=== PATIENT | female | born 1955 | race Caucasian/White ===

== ENCOUNTER 2021-07-27 17:31 | Emergency (ER) | payer MEDICARE, MEDICAID, SELFPAY ==
[2021-07-27 17:44] VITALS: BP 190/81; PULSE 62; RESP 13; TEMP 36.6; O2SAT 96; BMI 38.2
--- NOTE | 2021-07-27 18:55 | ED_ITS ---
HPI - Skin/Abscess/Foreign Bdy General Chief complaint: Skin/Abscess/Foreign Body Stated complaint: left hand burn Time Seen by Provider: 07/27/21 18:52 Source: patient Mode of arrival: ambulatory History of Present Illness HPI narrative: 65-year-old female with a past medical history of diabetes, hypertension presenting to the ED complaining of burn to left hand s/p cooking cabbage [employer]. Reports lifted cabbage of hot water and splashed back on to hand Onset (ago): hour(s) Related Data Previous Rx's Medication Instructions Recorded silver sulfadiazine 1 % topical 1 appl TOPICAL BID #50 g 07/27/21 cream (Silvadene) Allergies Allergy/AdvReac Type Severity Reaction Status Date / Time bupropion [From WELLBUTRIN] Allergy Unknown UNKNOWN Unverified 03/02/20 15:01 ibuprofen [From MOTRIN] Allergy Unknown UNKNOWN Unverified 03/02/20 15:01 Wellbutrin Allergy Unknown anaphylaxis Uncoded 10/26/18 00:00 Review of Systems Review of Systems: Constitutional: No Fever, No Chills ENT/Mouth: No Ear Pain, No sore throat, No Rhinorrhea, No Swallowing Difficulty Cardiovascular: No Chest Pain, No SOB Respiratory: No Cough, No Wheezing Gastrointestinal: No Nausea, No Vomiting, No Abdominal pain Genitourinary: No Dysuria, No Urinary Frequency, No Hematuria, No Urgency, No Flank Pain Musculoskeletal: + joint pain, No Myalgias, + Joint Swelling Skin: +burn No rash Neuro: No Weakness, No Numbness, No Paresthesias Yes all other systems are reviewed and are negative [facility] Past Medical History Attestation statement: The following information was validated with the patient. Medical History Diabetes HTN (hypertension) Social History Social History Advance Directives: No Advance Directives Information Provided: Yes Physical Exam Vital Signs: Vital Signs: Last Vital Signs Temp 97.8 F 07/27/21 17:44 Pulse 62 07/27/21 17:44 Resp 13 07/27/21 17:44 BP 190/81 H 07/27/21 17:44 Pulse Ox 96 07/27/21 17:44 BMI result Body Mass Index 38.2 Const: General: cooperative, healthy appearing and no acute distress Orientation/consciousness: patient oriented x3 Limitations: no limitations HENMT: Head: Yes normal to inspection Ears: hearing grossly normal bilaterally General nose exam: Normal external nose present Face and sinus: Yes normal facial exam Eyes: General: appearance normal, both eyes and all related structures EOM: EOMs intact bilaterally Neck: Neck: Yes normal visual inspection and Yes no meningeal signs Resp: Effort & Inspection: normal respiratory effort and no respiratory distress Cardio: Rate: regular rate Heart sounds: S1 normal heart sound present and S2 normal heart sound present Peripheral pulses: radial pulses present Skin: Other: + Small area of superficial burn to left 3rd, 4th & 5th digits, volar aspect. Not circumferential. No blistering. No streaking. Full range of motion intact. Wounds: no wounds Neuro: General: patient oriented x3 and no meningeal signs Gait exam (Neuro): Normal gait present Extrem: General: Yes normal to inspection MDM - Skin/Abscess/Foreign Bdy MDM Narrative Medical decision making narrative: 65-year-old female with a past medical history of diabetes, hypertension presenting to the ED complaining of burn to right hand s/p cooking cabbage [employer]. On exam Hypertensive, did not take antihypertensives this morning, will give home dose, NAD/nontoxic, small superficial/1st degree burn noted to 3rd, 4th, an d 5th digits Volar aspect. No evidence of infection/blistering. Not circumferential. NV intact Will apply Silvadene and dressing Worrisome signs and symptoms and strict return precautions discussed Medical Records Attestation: I reviewed the patient's medical records. Lab Data Attestation: I reviewed the patient's lab results. Discharge Plan Discharge Clinical Impression: Burn Patient Disposition: Home, Self-Care Instructions: Superficial Burn (ED) Additional Instructions: You have a superficial burn to your left hand. Apply silver Silvadene as prescribed. Keep clean If begins to blister do not pop blisters Please follow-up with your doctor If area begins to look infected, increasing redness, swelling, or fever please return to the ED Prescriptions: New silver sulfadiazine [Silvadene] 1 % cream 1 appl topical BID Qty: 50 0RF Rx Instructions: apply a 1.5 mm thickness Referrals: Luz Elena Child PA [Primary Care Provider] - 5 days (as needed)
[2021-07-27] MEDS: Silver Sulfadiazine 1 % Cream 20 GM TUBE 1 APPL TOPICAL (19:59)
== END 2021-07-27 20:25 | disposition home or self-care (01) ==
PROVIDERS: Emergency Provider Internal Medicine; PCP Physician Assistant
DX: T23.132A Burn of first degree of multiple left fingers (nail), not including thumb, initial encounter (principal); T31.0 Burns involving less than 10% of body surface; I10 Essential (primary) hypertension; X12.XXXA Contact with other hot fluids, initial encounter; Y93.G3 Activity, cooking and baking; Y92.030 Kitchen in apartment as the place of occurrence of the external cause; Y99.9 Unspecified external cause status
CPT/HCPCS: 16000; 99283

== ENCOUNTER 2022-05-28 19:00 | Emergency (ER) | payer MEDICARE, MEDICAID, SELFPAY ==
[2022-05-28 20:26] VITALS: BP 229/98; PULSE 77; RESP 18; TEMP 36.6; O2SAT 97; BMI 36.6
--- NOTE | 2022-05-28 20:26 | ED_ITS ---
HPI - Back Pain/Injury General Chief Complaint: Back Pain/Injury Stated Complaint: Back pain Time Seen by Provider: 05/28/22 21:21 Source: patient Mode of arrival: ambulatory Limitations: no limitations History of Present Illness HPI Narrative: 66-year-old female with a past medical history of hypertension reports that she did not take her blood pressure medications today, history of chronic back pain with sciatica is presenting to the ER with complaints of 2 days of lower back pain radiating to her left buttock/left leg that is similar to her prior back pain/sciatica episodes. Reports that she forgot to take her blood pressure medication today and she denies any dizziness, headaches, neck pain/stiffness, chest pain or shortness of breath, nausea/vomiting, abdominal pain, dysuria, lower extremity more calf tenderness or any other symptoms complaints or concerns at this time. MD elicited complaint: back pain and back injury Pertinent past history: prior back pain Onset (ago): day(s) (2) Timing: constant and progressively worsening Severity: moderate Similar Symptoms Previously: Yes Quality: aching, spasming and throbbing Location: lumbar spine Radiation: buttocks and left upper leg Exacerbating factors: movement, sitting upright, walking and lifting Relieving factors: none Context: unknown Associated symptoms: denies other symptoms Treatments prior to arrival: acetaminophen Work related injury: No Related Data Previous Rx's Medication Instructions Recorded silver sulfadiazine 1 % topical 1 appl topical BID #50 grams 07/27/21 cream (Silvadene) cyclobenzaprine 10 mg tablet 10 mg PO Q8H #14 tabs 05/28/22 ketorolac 10 mg tablet 10 mg PO Q8H PRN pain #14 tabs 05/28/22 oxycodone 5 mg tablet 5 mg PO Q6H PRN pain #14 tabs 05/28/22 prednisone 20 mg tablet 40 mg PO DAILY inflammation 5 days 05/28/22 #10 tabs Allergies Allergy/AdvReac Type Severity Reaction Status Date / Time bupropion [From WELLBUTRIN] Allergy Unknown UNKNOWN Unverified 03/02/20 15:01 ibuprofen [From MOTRIN] Allergy Unknown UNKNOWN Unverified 03/02/20 15:01 Wellbutrin Allergy Unknown anaphylaxis Uncoded 10/26/18 00:00 Review of Systems Review of Systems: Constitutional : No trauma, No Weight loss, No Fever, No Chills, ENT/Mouth : No Hearing loss, No Ear Pain, No Nasal Congestion, No Sinus Pain, No Hoarseness, No sore throat, No Rhinorrhea, No Swallowing Difficulty Cardiovascular : No Chest Pain, No SOB Respiratory : No Cough, No Dyspnea Gastrointestinal : No Nausea, No Vomiting, No Diarrhea, No abdominal Pain, No Hematochezia, No Melena Genitourinary : No Dysuria, No Urinary Frequency, No Hematuria, No Urinary or Bowel Incontinence/retention Musculoskeletal : + Back pain, No neck pain, No joint stiffness, No joint swelling Skin : No Skin Lesions, No rash or signs of infection Neuro : No Weakness, No Numbness, No Paresthesias, No headache, no loss of bowel or bladder incontinence, no saddle anesthesia, Focal weakness, + radiation Denies history of IV drug usage. Yes all other systems are reviewed and are negative [facility] Past Medical History Attestation statement: The following information was validated with the patient. Source: old records reviewed and nursing notes reviewed Medical History Diabetes HTN (hypertension) Social History Social History Advance Directives: No Advance Directives Information Provided: No Physical Exam Vital Signs: Vital Signs: Last Vital Signs Temp 97.8 F 05/28/22 20:26 Pulse 77 05/28/22 20:26 Resp 18 05/28/22 20:26 BP 229/98 H 05/28/22 20:26 Pulse Ox 97 05/28/22 20:26 O2 Del Method 05/28/22 20:26 BMI result Body Mass Index 36.6 vital signs have been reviewed as normal and appeared to be correct. Blood pressure normal. Heart rate normal. Respiration rate normal. Temperature normal. Oxygen saturation normal. Appearance: Alert. Oriented X3. No acute distress. Head: Normal external exam. Normocephalic. Atraumatic. No [place] signs noted. No raccoon eyes noted Eyes: PERRLA. EOMI. Conjunctiva and sclera normal. Eyelids normal. ENT: EAC normal. TM's Normal. Pharynx normal. Uvula midline. Moist mucous membranes. No trismus noted. No drooling noted. No muffled voice noted. Neck: Normal inspection. Neck supple. FROM. No adenopathy. Thyroid Normal. No meningeal signs. No neck mass noted. CVS: Normal heart rate and rhythm. Heart sound normal. No murmurs noted. Pulses normal throughout. Respiratory: No respiratory distress. Painless inspiration. Breath sounds normal. No wheezes/rales/rhonchi noted. Chest nontender. No accessory muscle usage noted or decreased air movement noted. Abdomen: Soft and nontender. Bowel sounds normal in all 4 quadrants. No distention noted. No organomegaly noted. No visible injury noted. Back: No CVA tenderness. Full range of motion noted. No obvious deformities, or edema. Mild para-spinal muscular tenderness from lumbar region to coccyx. Full ROM in back and lower extremities. 5/5 strength hip extension/flexion, abduction, adduction. Mild Lumbar pain with hip flexion against resistance. Straight leg raise test negative on right; Straight leg raise test negative on left; Reflexes normal ankle and knee bilaterally; EHL motor strength normal bilaterally. No rashes/lesion/induration/fluctuance or signs infection noted. Skin: Skin warm and dry. Normal skin color. Normal skin turgor. No rashes/lesions/lacerations noted. Extremities: No lower extremity edema. Extremities exhibit normal range of motion. Extremities nontender. Neuro: Oriented X 3. No motor deficit. No sensory deficit. Reflexes normal. Patient has a normal steady gait. Course Course Course Narrative: 20:40pm - Pt c likely muscular pain, but could be herniated disc. Neuro exam shows no deficits. Not c/w AAA/epidural abscess/dissection.No high risk Hx (Incont, fever, immunosupp, recent surgery/LP, coag, signif trauma, wt loss, puls mass, hx/o Ca, TB, or IVDU) to warrant MRI/CT today. Not c/w Pyelo/UTI/kidney stone/spinal fx. Not cauda equina syndrome. Imaging not currently indicated. I was going to discharge the patient although her blood pressure is 200/100. She reports she did not take her prescribed medication. Appears that the patient is on amlodipine 5 mg daily and losartan 50 mg. Denies any cardiac related complaints. Therefore at this time I was about to discharge her with Toradol, Flexeril, prednisone and oxycodone although due to her blood pressure being elevated will give her prescribed losartan 50 mg amlodipine 5 mg re-evaluate the patient's blood pressure. Otherwise all other vitals are stable. Not in any acute distress. Patient will be sent back to the waiting room for further evaluation treatment. Reevaluation(s) Reevaluation #1: Patient reports that her pain is improved. Her blood pressure still elevated despite giving her her 2 blood pressure medications. She reports she no longer wants to be here she does not want any labs or imaging and she reports that she does not have any cardiac related complaints that it is because she forgot to take her blood pressure medication. Therefore at this time she is requesting to be discharged. I explained to her she develops any dizziness, headaches or any cardiac related complaints and she will have to return immediately. Patient understands agrees with this plan. Requesting to be discharged therefore she will be discharged. Time: 21:24 Medications Administered Discontinued Medications Generic Name Dose Route Start Last Admin Trade Name Freq PRN Reason Stop Dose Admin Amlodipine Besylate 5 mg 05/28/22 20:32 05/28/22 20:43 Amlodipine Besylate 5 Mg Tablet PO 05/28/22 20:33 5 mg ONCE ONE Administration Protocol Ketorolac Tromethamine 60 mg 05/28/22 20:28 05/28/22 20:42 Ketorolac Tromethamine 60 Mg/2 Ml Vial IM 05/28/22 20:29 60 mg ONCE ONE Administration Losartan Potassium 50 mg 05/28/22 20:32 05/28/22 20:41 Losartan Potassium 50 Mg Tablet PO 05/28/22 20:33 50 mg ONCE ONE Administration Protocol Discharge Plan Discharge Clinical Impression: Lumbar radicular pain, Elevated blood pressure reading Patient Disposition: Home, Self-Care Instructions: Lumbar Radiculopathy (ED), Lower Back Exercises (ED) Prescriptions: New ketorolac 10 mg tablet 10 mg PO Q8H PRN (Reason: pain) Qty: 14 0RF cyclobenzaprine 10 mg tablet 10 mg PO Q8H Qty: 14 0RF prednisone 20 mg tablet 40 mg PO DAILY 5 Days Qty: 10 0RF oxycodone 5 mg tablet 5 mg PO Q6H PRN (Reason: pain) Qty: 14 0RF Rx Instructions: Partial Fill upon patient request. No Action silver sulfadiazine [Silvadene] 1 % cream 1 appl topical BID Qty: 50 0RF Rx Instructions: apply a 1.5 mm thickness Referrals: Luz Elena Child PA [Physician [employer]] - 2 days
[2022-05-28] MEDS: Losartan Potassium 50 MG TABLET PO (20:41)
[2022-05-28] MEDS: Ketorolac Tromethamine 60 MG/2 ML VIAL IM (20:42)
[2022-05-28] MEDS: amLODIPine Besylate 5 MG TABLET PO (20:43)
== END 2022-05-28 21:25 | disposition home or self-care (01) ==
PROVIDERS: Emergency Provider Internal Medicine
DX: M54.50 Low back pain, unspecified (principal); R03.0 Elevated blood-pressure reading, without diagnosis of hypertension; Z79.899 Other long term (current) drug therapy
CPT/HCPCS: 96372; 99283; 99284; J1885

== ENCOUNTER 2022-07-30 13:07 | Emergency (ER) | payer MEDICARE, MEDICAID, SELFPAY ==
[2022-07-30 13:13] VITALS: BP 177/95; PULSE 79; RESP 18; TEMP 37; O2SAT 98; BMI 35.0
--- NOTE | 2022-07-30 13:13 | ED.BACK ---
HPI - Back Pain/Injury General Chief Complaint: Extremity Injury, Lower <Concha Sauer CNP - Last Filed: 07/30/22 13:17> Stated Complaint: Sciatic pain <Concha Sauer CNP - Last Filed: 07/30/22 13:17> Time Seen by Provider: 07/30/22 13:50 <Concha Sauer CNP - Last Filed: 07/30/22 13:17> Source: patient <RANJITH Espinoza - Last Filed: 07/30/22 15:52> Mode of arrival: ambulatory <RANJITH Espinoza - Last Filed: 07/30/22 15:52> Limitations: no limitations <RANJITH Espinoza - Last Filed: 07/30/22 15:52> History of Present Illness HPI Narrative: 66 yo female with history of HTN, sciatica who presents to the ER for evaluation of a sciatic flare up for the last 2 days. 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 She reports the pain is in her left lower back and radiates to her buttock and down the left leg. it is worse with movement and walking. No falls or trauma. No fever, chills, weakness, numbness or tingling, just pain. no improvement with tylenol. has no PCP <RANJITH Espinoza - Last Filed: 07/30/22 15:52> MD elicited complaint: back pain <RANJITH Espinoza Last Filed: 07/30/22 15:52> Pertinent past history: prior back pain <RANJITH Espinoza Last Filed: 07/30/22 15:52> Onset (ago): day(s) (2) <RANJITH Espinoza - Last Filed: 07/30/22 15:52> Timing: progressively worsening <RANJITH Espinoza Last Filed: 07/30/22 15:52> Severity: severe <RANJITH Espinoza Last Filed: 07/30/22 15:52> Similar Symptoms Previously: Yes <RANJITH Espinoza Last Filed: 07/30/22 15:52> Quality: sharp and spasming <RANJITH Espinoza - Last Filed: 07/30/22 15:52> Location: left lower back <RANJITH Espinoza - Last Filed: 07/30/22 15:52> Radiation: buttocks <RANJITH Espinoza - Last Filed: 07/30/22 15:52> Exacerbating factors: movement and walking <RANJITH Espinoza - Last Filed: 07/30/22 15:52> Relieving factors: immobilization and supine <RANJITH Espinoza - Last Filed: 07/30/22 15:52> Context: while lifting, turning/twisting and bending <RANJITH Espinoza - Last Filed: 07/30/22 15:52> Associated symptoms: denies other symptoms <RANJITH Espinoza - Last Filed: 07/30/22 15:52> Treatments prior to arrival: acetaminophen <RANJITH Espinoza - Last Filed: 07/30/22 15:52> Work related injury: No <RANJITH Espinoza - Last Filed: 07/30/22 15:52> Related Data Home Medications: Previous Rx's Medication Instructions Recorded silver sulfadiazine 1 % topical 1 appl topical BID #50 grams 07/27/21 cream (Silvadene) cyclobenzaprine 10 mg tablet 10 mg PO Q8H #14 tabs 05/28/22 ketorolac 10 mg tablet 10 mg PO Q8H PRN pain #14 tabs 05/28/22 oxycodone 5 mg tablet 5 mg PO Q6H PRN pain #14 tabs 05/28/22 prednisone 20 mg tablet 40 mg PO DAILY inflammation 5 days 05/28/22 #10 tabs cyclobenzaprine 10 mg tablet 10 mg PO TID PRN muscle spasm #14 07/30/22 tabs lidocaine 5 % topical patch 1 patch topical DAILY #15 ea 07/30/22 oxycodone 5 mg tablet 5 mg PO Q6H PRN severe pain (scale 07/30/22 score 7-10) #6 tabs prednisone 20 mg tablet 40 mg PO DAILY #10 tabs 07/30/22 <Concha Sauer CNP - Last Filed: 07/30/22 13:17> Allergies/Adverse Reactions: Allergies Allergy/AdvReac Type Severity Reaction Status Date / Time bupropion [From WELLBUTRIN] Allergy Unknown UNKNOWN Verified 07/30/22 13:16 ibuprofen [From MOTRIN] Allergy Unknown UNKNOWN Verified 07/30/22 13:16 Wellbutrin Allergy Unknown anaphylaxis Uncoded 10/26/18 00:00 <Concha Sauer CNP - Last Filed: 07/30/22 13:17> Review of Systems Review of Systems: Yes all other systems are reviewed and are negative <RANJITH Espinoza - Last Filed: 07/30/22 15:52> [facility] Past Medical History Medical History: Medical History Diabetes HTN (hypertension) <Concha Sauer CNP - Last Filed: 07/30/22 13:17> Social History Social History: Social History Advance Directives: No Advance Directives Information Provided: Yes <Concha Sauer CNP - Last Filed: 07/30/22 13:17> Physical Exam Vital Signs: Vital Signs: Last Vital Signs Temp 98.6 F 07/30/22 13:13 Pulse 79 07/30/22 13:13 Resp 18 07/30/22 13:13 BP 177/95 H 07/30/22 13:13 Pulse Ox 98 07/30/22 13:13 O2 Del Method 07/30/22 13:13 BMI result Body Mass Index 35.0 <Concha Sauer CNP - Last Filed: 07/30/22 13:17> Vital Signs: Last Vital Signs Temp 98.6 F 07/30/22 13:13 Pulse 79 07/30/22 13:13 Resp 18 07/30/22 13:13 BP 177/95 H 07/30/22 13:13 Pulse Ox 98 07/30/22 13:13 O2 Del Method 07/30/22 13:13 BMI result Body Mass Index 35.0 <RANJITH Esipnoza - Last Filed: 07/30/22 15:52> Appearance: Alert. Oriented X3. No acute distress. HEENT: normal inspection CVS: Normal heart rate and rhythm. Pulses normal. Respiratory: No respiratory distress. Skin: Skin warm and dry. Normal skin color. Normal skin turgor. No rashes. Back: soft tissue tenderness of the low lumbar area and SI joint on the left, limited flexion of the spine due to pain. Extremities: normal inspection. normal ROM Neuro: Oriented X 3. No motor deficit. No sensory deficit. steady gait <RANJITH Espinoza - Last Filed: 07/30/22 15:52> Course Course Course Narrative: This is an RME: Additional HPI, ROS, PE not included below will be deferred to primary provider. Patient is a 66-year-old female who presents to emergency department for evaluation of Sciatica pain radiating to the left leg. Worsening over the past 2 days, unbearable. Unrelieved with Tylenol. Denies any recent precipitating injury, symptoms, saddle anesthesia, bladder/ bowel dysfunction. Has had sciatica pain for many years, she is ?searching for a new primary care provider?, has seen pain management in the past without improvement. I can't leave today until I get some relief, last time they gave me an injection . <Concha Sauer CNP - Last Filed: 07/30/22 13:17> Reevaluation(s) Reevaluation #1: Pt reports acute on chronic sciatic pain - relieved in the past with IM toradol - will give IM toradol, prednisone and dose of oxycodone and reassess. <RANJITH Espinoza - Last Filed: 07/30/22 15:52> Reevaluation #2: pain improved. stable for mn home with treatment for sciatica. given pcp info <RANJITH Espinoza - Last Filed: 07/30/22 15:52> Medications Administered Discontinued Medications Generic Name Dose Route Start Last Admin Trade Name Freq PRN Reason Stop Dose Admin Ketorolac Tromethamine 60 mg 07/30/22 14:11 07/30/22 15:08 Ketorolac Tromethamine 60 Mg/2 Ml Vial IM 07/30/22 14:12 60 mg ONCE ONE Administration Oxycodone HCl 5 mg 07/30/22 14:09 07/30/22 15:09 Oxycodone Hcl Immed Release 5 Mg Tablet PO 07/30/22 14:10 5 mg ONCE ONE Administration Prednisone 50 mg 07/30/22 14:09 07/30/22 15:08 Prednisone 10 Mg Tablet PO 07/30/22 14:10 50 mg ONCE ONE Administration <Concha Sauer CNP - Last Filed: 07/30/22 13:17> Medications Administered Discontinued Medications Generic Name Dose Route Start Last Admin Trade Name Erasmo PRN Reason Stop Dose Admin Ketorolac Tromethamine 60 mg 07/30/22 14:11 07/30/22 15:08 Ketorolac Tromethamine 60 Mg/2 Ml Vial IM 07/30/22 14:12 60 mg ONCE ONE Administration Oxycodone HCl 5 mg 07/30/22 14:09 07/30/22 15:09 Oxycodone Hcl Immed Release 5 Mg Tablet PO 07/30/22 14:10 5 mg ONCE ONE Administration Prednisone 50 mg 07/30/22 14:09 07/30/22 15:08 Prednisone 10 Mg Tablet PO 07/30/22 14:10 50 mg ONCE ONE Administration <RANJITH Espinoza - Last Filed: 07/30/22 15:52> Medical Decision Making Differential Diagnosis Differential Diagnoses: The differential diagnosis associated with the presentation includes <RANJITH Espinoza Last Filed: 07/30/22 15:52> Inflammatory disorders, malignancy, trauma, osteoporosis, nerve root compression, radiculopathy, plexopathy, degenerative disc disease, disc herniation, spinal stenosis, sacroiliac joint dysfunction, facet joint injury, and less likely infection?like abscess or diskitis <RANJITH Espinoza Last Filed: 07/30/22 15:52> External Record Review External record reviewed: Outpatient record, Prior outpatient labs and Prior outpatient radiology <RANJITH Espinoza Last Filed: 07/30/22 15:52> Tests considered The following testing was considered but not selected: imaging but not indicated given no trauma or red flag symptoms <RANJITH Espinoza Last Filed: 07/30/22 15:52> Prescription Management I considered prescription management with: Pain Medication <RANJITH Espinoza Last Filed: 07/30/22 15:52> Critical Care Time Critical Care Time Critical Care Time: No <RANJITH Espinoza Last Filed: 07/30/22 15:52> Discharge Plan Discharge Clinical Impression: Sciatica <Concha Sauer CNP - Last Filed: 07/30/22 13:17> Patient Disposition: Home, Self-Care <Conchawilliam Sauer CNP - Last Filed: 07/30/22 13:17> Instructions: Sciatica (ED), Lower Back Exercises (ED) <Concha Sauer CNP - Last Filed: 07/30/22 13:17> Additional Instructions: No bending, lifting or twisting. Use ice several times per day for 20 minutes at a time for the next 48 hours and then change to heat. Take medications as prescribed to help with pain and discomfort. Follow up with your Primary Care Doctor this week. If your pain worsens, if you develop new numbness, tingling, weakness, loss of function or incontinence call 911 or come back to the ER right away for evaluation. <Concha Sauer CNP - Last Filed: 07/30/22 13:17> Prescriptions: New prednisone 20 mg tablet 40 mg PO DAILY Qty: 10 0RF cyclobenzaprine 10 mg tablet 10 mg PO TID PRN (Reason: muscle spasm) Qty: 14 0RF lidocaine 5 % adhesive patch,medicated 1 patch topical DAILY Qty: 15 0RF Rx Instructions: leave on most painful area for up to 12 hrs oxycodone 5 mg tablet 5 mg PO Q6H PRN (Reason: severe pain (scale score 7-10)) Qty: 6 0RF Rx Instructions: Partial Fill upon patient request. No Action silver sulfadiazine [Silvadene] 1 % cream 1 appl topical BID Qty: 50 0RF Rx Instructions: apply a 1.5 mm thickness ketorolac 10 mg tablet 10 mg PO Q8H PRN (Reason: pain) Qty: 14 0RF cyclobenzaprine 10 mg tablet 10 mg PO Q8H Qty: 14 0RF prednisone 20 mg tablet 40 mg PO DAILY 5 Days Qty: 10 0RF oxycodone 5 mg tablet 5 mg PO Q6H PRN (Reason: pain) Qty: 14 0RF Rx Instructions: Partial Fill upon patient request. <Concha Sauer CNP - Last Filed: 07/30/22 13:17> Interventions: ED Discharge Assessment Last Done: 07/30/22 15:42 <Concha Sauer CNP - Last Filed: 07/30/22 13:17>
[2022-07-30] MEDS: predniSONE 10 MG TABLET 50 MG PO (15:08)
[2022-07-30] MEDS: Ketorolac Tromethamine 60 MG/2 ML VIAL IM (15:08)
[2022-07-30] MEDS: oxyCODONE HCl Immed Release 5 MG TABLET PO (15:09)
== END 2022-07-30 15:56 | disposition home or self-care (01) ==
PROVIDERS: Emergency Provider Emergency Medicine
DX: M54.42 Lumbago with sciatica, left side (principal); Z79.899 Other long term (current) drug therapy
CPT/HCPCS: 96372; 99283; 99284; J1885

== ENCOUNTER 2022-08-21 13:52 | Emergency (ER) | payer MEDICARE, MEDICAID, SELFPAY ==
--- NOTE | ~2022-08-21 | XR_ITS ---
EXAMINATION: XR WRIST, RIGHT CLINICAL INFORMATION: Pain COMPARISON: None TECHNIQUE: Four views of the right wrist. FINDINGS: No definite acute fracture or dislocation is evident. There is some narrowing of the radiocarpal joint. Small calcific density seen about the ulnar styloid. Bony density about the dorsum of the wrist is seen which may be related to degenerative spurring however an old or recent triquetral fracture cannot be excluded. There is some narrowing with spurring about the first carpal metacarpal joint. There is some soft tissue swelling seen overlying the wrist. XR/XR wrist RT min 3V IMPRESSION: No definite acute fracture or dislocation of the right wrist. Degenerative change as described. Probable dorsal spurring about the wrist however less likely this may be related to a triquetral fracture.
[2022-08-21 13:57] VITALS: BP 189/77; PULSE 68; RESP 17; TEMP 36.5; O2SAT 97; BMI 36.6
--- NOTE | 2022-08-21 13:57 | ED_ITS ---
HPI - Extremity Injury (Upper) General Chief Complaint: Extremity Injury, Upper <RANJITH Espinoza - Last Filed: 08/21/22 14:02> Stated Complaint: R wrist inj <RANJITH Espinoza - Last Filed: 08/21/22 14:02> Time Seen by Provider: 08/21/22 14:20 <RANJITH Espinoza - Last Filed: 08/21/22 14:02> Source: patient <RANJITH Shay Last Filed: 08/21/22 18:49> Mode of arrival: ambulatory <RANJITH Shay Last Filed: 08/21/22 18:49> Limitations: no limitations <RANJITH Shay Last Filed: 08/21/22 18:49> History of Present Illness HPI narrative: Patient is a 66 year old assigned female at with a history of DM presenting to the emergency department today with right wrist pain. Patient states that a few days ago she was helping her sister move some heavy boxes and began to have right wrist pain after. Patient states that she has a history of tendonitis of that wrist many years ago. Patient denies any dizziness, lightheadedness, abdominal pain, nausea, vomiting, fever, chills, blurry vision, double vision, loss of vision, chest pain, difficulty breathing, shortness of breath, back pain, night sweats, pain with urination, increased urinary frequency, increased urinary urgency, blood in her urine or stool, syncope or a near syncopal episode, bowel incontinence, bladder incontinence, bowel retention, bladder retention, or any other complaints at this time. <RANJITH Shay - Last Filed: 08/21/22 18:49> MD complaint: injury to: right and wrist <RANJITH Shay Last Filed: 08/21/22 18:49> Severity: mild <RANJITH Shay Last Filed: 08/21/22 18:49> Severity scale (1-10): 2 <RANJITH Shay Last Filed: 08/21/22 18:49> Relieving factors: none <RANJITH Shya Last Filed: 08/21/22 18:49> Exacerbating factors: movement of extremity <RANJITH Shay Last Filed: 08/21/22 18:49> Associated symptoms: denies other symptoms <RANJITH Shay Last Filed: 08/21/22 18:49> Related Data Home Medications: Previous Rx's Medication Instructions Recorded silver sulfadiazine 1 % topical 1 appl topical BID #50 grams 07/27/21 cream (Silvadene) cyclobenzaprine 10 mg tablet 10 mg PO Q8H #14 tabs 05/28/22 ketorolac 10 mg tablet 10 mg PO Q8H PRN pain #14 tabs 05/28/22 oxycodone 5 mg tablet 5 mg PO Q6H PRN pain #14 tabs 05/28/22 prednisone 20 mg tablet 40 mg PO DAILY inflammation 5 days 05/28/22 #10 tabs cyclobenzaprine 10 mg tablet 10 mg PO TID PRN muscle spasm #14 07/30/22 tabs lidocaine 5 % topical patch 1 patch topical DAILY #15 ea 07/30/22 oxycodone 5 mg tablet 5 mg PO Q6H PRN severe pain (scale 07/30/22 score 7-10) #6 tabs prednisone 20 mg tablet 40 mg PO DAILY #10 tabs 07/30/22 <RANJITH Espinoza - Last Filed: 08/21/22 14:02> Allergies/Adverse Reactions: Allergies Allergy/AdvReac Type Severity Reaction Status Date / Time bupropion [From WELLBUTRIN] Allergy Unknown UNKNOWN Verified 07/30/22 13:16 ibuprofen [From MOTRIN] Allergy Unknown UNKNOWN Verified 07/30/22 13:16 Wellbutrin Allergy Unknown anaphylaxis Uncoded 10/26/18 00:00 <RANJITH Espinoza - Last Filed: 08/21/22 14:02> Review of Systems Constitutional: Constitutional: Reports no additional constitutional complaints, Denies chills, Denies fever(s) and Denies night sweats <RANJITH Shay Last Filed: 08/21/22 18:49> Eyes: Eyes: Reports no additional eye complaints, Denies blurry vision, Denies change in vision, Denies diplopia, Denies eye discharge, Denies loss of vision and Denies eye pain <RANJITH Shay Last Filed: 08/21/22 18:49> ENT: Denies dizziness <RANJITH Shay Last Filed: 08/21/22 18:49> Cardiovascular: Cardiovascular: Reports no additional cardiovascular complaints, Denies chest pain, Denies lightheadedness, Denies Loss of Consciousness and Denies dyspnea <RANJITH Shay - Last Filed: 08/21/22 18:49> Respiratory: Respiratory: Reports no additional respiratory complaints and Denies dyspnea <RANJITH Shay - Last Filed: 08/21/22 18:49> Gastrointestinal: Gastrointestinal: Reports no additional gastrointestinal complaints, Denies abdominal pain, Denies melena, Denies hematochezia, Denies change in bowel habits and Denies change in stool character <RANJITH Shay - Last Filed: 08/21/22 18:49> Genitourinary: Genitourinary: Denies hematuria, Denies urinary frequency, Denies dysuria, Denies urinary incontinence, Denies urinary hesitancy and Denies urinary urgency <RANJITH Shay - Last Filed: 08/21/22 18:49> Musculoskeletal: Musculoskeletal: Reports no additional musculoskeletal com plaints, Denies numbness and Denies tingling <RANJITH Shay - Last Filed: 08/21/22 18:49> Comments: right wrist pain and swelling <RANJITH Shay - Last Filed: 08/21/22 18:49> Neurologic: Denies dizziness, Denies loss of vision, Denies numbness and Denie s tingling <RANJITH Shay - Last Filed: 08/21/22 18:49> Psychiatric: Psychiatric: Reports no additional psychiatric complaints <RANJITH Shay - Last Filed: 08/21/22 18:49> Endocrine: Endocrine: Reports no additional endocrine complaints <RANJITH Shay - Last Filed: 08/21/22 18:49> Hematologic/Lymphatic: Hematologic/Lymphatic: Reports no additional hematologic/lymphatic complaints <RANJITH Shay - Last Filed: 08/21/22 18:49> Allergic/Immunologic: Allergic/Immunologic: Reports no additional allergic/immunologic complaints <RANJITH Shay - Last Filed: 08/21/22 18:49> PMFSH Past Medical History Attestation statement: The following information was validated with the patient. <RANJITH Shay - Last Filed: 08/21/22 18:49> Source: old records reviewed and nursing notes reviewed <RANJITH Shay - Last Filed: 08/21/22 18:49> Medical History: Medical History Diabetes HTN (hypertension) <RANJITH Espinoza - Last Filed: 08/21/22 14:02> Social History Social History: Social History Advance Directives: Yes Advance Directives Information Provided: No Advance Directives on File: No <RANJITH Espinoza - Last Filed: 08/21/22 14:02> Physical Exam Vital Signs: Vital Signs: Last Vital Signs Temp 97.7 F 08/21/22 13:57 Pulse 68 08/21/22 13:57 Resp 17 08/21/22 13:57 BP 189/77 H 08/21/22 13:57 Pulse Ox 97 08/21/22 13:57 O2 Del Method 08/21/22 13:57 BMI result Body Mass Index 36.6 <RANJITH Espinoza - Last Filed: 08/21/22 14:02> Vital Signs: Last Vital Signs Temp 97.7 F 08/21/22 13:57 Pulse 68 08/21/22 13:57 Resp 17 08/21/22 13:57 BP 189/77 H 08/21/22 13:57 Pulse Ox 97 08/21/22 13:57 O2 Del Method 08/21/22 13:57 BMI result Body Mass Index 36.6 <RANJITH Shay - Last Filed: 08/21/22 18:49> Const: General: cooperative, no acute distress, alert and awake <RANJITH Shay - Last Filed: 08/21/22 18:49> Nutritional Appearance: well nourished <RANJITH Shay - Last Filed: 08/21/22 18:49> Orientation/consciousness: patient oriented x3 <RANJITH Shay - Last Filed: 08/21/22 18:49> Limitations: no limitations <RANJITH Shay - Last Filed: 08/21/22 18:49> HEENT: Head: Yes normal to inspection and Yes atraumatic <Cinthya Vasquez [facility] Last Filed: 08/21/22 18:49> Ears: hearing grossly normal bilaterally and external ears normal <Cinthya Vasquez [place] - Last Filed: 08/21/22 18:49> General nose exam: Normal external nose present, no nasal discharge noted and no epistaxis <Cinthya Vasquez [facility] Last Filed: 08/21/22 18:49> Face and sinus: Yes normal facial exam, No abrasion and No laceration <Cinthya Vasquez [place] - Last Filed: 08/21/22 18:49> Mouth: Normal oral and palatal mucosa present, no drooling and no muffled voice <Cinthya Vasquez [place] - Last Filed: 08/21/22 18:49> Eyes: General: appearance normal, both eyes and all related structures <Cinthya Vasquez [facility] Last Filed: 08/21/22 18:49> Periorbital: periorbital findings normal <Cinthya Vasquez [place] - Last Filed: 08/21/22 18:49> Eyelids: Yes eyelids normal <Cinthya Vasquez [facility] Last Filed: 08/21/22 18:49> Conjunctivae: conjunctivae normal <Cinthya Vasquez [place] - Last Filed: 08/21/22 18:49> Pupils: Equal, round and reactive pupils present <Cinthya Vasquez [facility] Last Filed: 08/21/22 18:49> EOM: EOMs intact bilaterally <Cinthya Vasquez [facility] Last Filed: 08/21/22 18:49> Neck: Neck: Yes normal visual inspection, Yes full ROM and Yes no lymphadenopathy <Cinthya Vasquez [facility] Last Filed: 08/21/22 18:49> Chest: Chest palpation & inspection: normal inspection of the chest <RANJITH Shay Last Filed: 08/21/22 18:49> Resp: Effort & Inspection: normal respiratory effort and able to speak in complete sentences <Cinthya Vasquez [facility] Last Filed: 08/21/22 18:49> Auscultation: clear to auscultation bilaterally <RANJITH Shay - Last Filed: 08/21/22 18:49> Cardio: Rate: regular rate <Cinthya Vasquez PA - Last Filed: 08/21/22 18:49> Rhythm: regular rhythm <Cinthyajune Ayersshira PA - Last Filed: 08/21/22 18:49> GI: Inspection: Yes normal to inspection <Cinthya RANJITH Vasquez - Last Filed: 08/21/22 18:49> Neuro: General: patient oriented x3 and moves all extremities <RANJITH Shay - Last Filed: 08/21/22 18:49> Cranial nerves: Yes Equal, round and reactive pupils present <Cinthya Vasquez PA - Last Filed: 08/21/22 18:49> Cognition (Neuro): normal cognition <Cinthya Vasquez PA - Last Filed: 08/21/22 18:49> Motor exam (neuro): 5/5 motor strength present throughout <Cinthya Vasquez PA - Last Filed: 08/21/22 18:49> Sensory Exam: Normal double simultaneous stimulation for sensation <RANJITH Shay - Last Filed: 08/21/22 18:49> Coordination: [id number] test normal <Cinthya Vasquez PA - Last Filed: 08/21/22 18:49> Extrem: Other: minimal right wrist swelling, no warmth, no erythema <Cinthya Vasquez PA - Last Filed: 08/21/22 18:49> General: Yes full ROM and Yes capillary refill normal <Cinthya Christina PA - Last Filed: 08/21/22 18:49> Psych: Appearance: grossly normal <RANJITH Shay - Last Filed: 08/21/22 18:49> Mental Status: mental status grossly normal <RANJITH Shay - Last Filed: 08/21/22 18:49> Affect: normal affect <RANJITH Shay - Last Filed: 08/21/22 18:49> Attitude: cooperative <RANJITH Shay - Last Filed: 08/21/22 18:49> Thought process: Normal thought process present <RANJITH Shay - Last Filed: 08/21/22 18:49> Thought content: Normal thought content present <RANJITH Shay - Last Filed: 08/21/22 18:49> Insight: Good insight present (Psych) <RANJITH Shay - Last Filed: 08/21/22 18:49> Course Course Course Narrative: KAMILAH Ybarra is a [id number]-female, with a history of hypertension, presenting to the ER with complaints of right wrist pain since yesterday. States that 4 days ago she was helping her sister with housework, no direct trauma or falls, woke up yesterday morning with pain and swelling. Dorsal swelling and tenderness over the distal right wrist, more on the ulnar side. BP 190/103 in triage, admits that she forgot to take her medication this morning. No chest pain or shortness of breath. Plan: Right wrist x-ray ordered. <RANJITH Espinoza - Last Filed: 08/21/22 14:02> Medications Administered Discontinued Medications Generic Name Dose Route Start Last Admin Trade Name Freq PRN Reason Stop Dose Admin Ketorolac Tromethamine 15 mg 08/21/22 15:07 08/21/22 15:17 Ketorolac Tromethamine 15 Mg/Ml Vial IM 08/21/22 15:08 15 mg ONCE ONE Administration <RANJITH Espinoza - Last Filed: 08/21/22 14:02> Medications Administered Discontinued Medications Generic Name Dose Route Start Last Admin Trade Name Freq PRN Reason Stop Dose Admin Ketorolac Tromethamine 15 mg 08/21/22 15:07 08/21/22 15:17 Ketorolac Tromethamine 15 Mg/Ml Vial IM 08/21/22 15:08 15 mg ONCE ONE Administration <RANJITH Shay - Last Filed: 08/21/22 18:49> Medical Decision Making Medical Decision Making MDM Narrative: Patient is a 66 year old assigned female at with a history of DM presenting to the emergency department today with right wrist pain. Patient's physical exam showed minimal swelling to the right wrist with no erythema or warmth. Patient's right wrist x-ray showed no acute process. I explained my physical exam findings as well as all test results to the patient. I answered all questions asked by the patient. Patient was given IM Toradol and her wrist was placed in a splint, without incident. I stressed the importance of the patient taking her medication as prescribed. I stressed the importance of the patient following up with her primary care provider and an orthopedic provider. I stressed the importance of the patient returning to the emergency department immediately if her symptoms were to worsen or if she were to develop any dizziness, shortness of breath, difficulty breathing, chest pain, blurry vision, loss of vision, nausea, vomiting, abdominal pain, fever, chills, back pain, or any other complaints. Patient verbalized agreement and understanding with this treatment plan and discharge. <RANJITH Shay - Last Filed: 08/21/22 18:49> Differential Diagnosis Differential Diagnoses: The differential diagnosis associated with the presentation includes <RANJITH Shay - Last Filed: 08/21/22 18:49> right wrist arthritis, right wrist tendonitis <RANJITH Shay Last Filed: 08/21/22 18:49> Independent Interpretation I performed an independent interpretation of an: Plain X-Ray <RANJITH Shay Last Filed: 08/21/22 18:49> Interpretation: My interpretation is in agreement with the radiologist's impression of this imaging study. EXAMINATION: XR WRIST, RIGHT CLINICAL INFORMATION: Pain? COMPARISON: None? TECHNIQUE: Four views of the right wrist. FINDINGS: No definite acute fracture or dislocation is evident. There is some narrowing of the radiocarpal joint. Small calcific density seen about the ulnar styloid. Bony density about the dorsum of the wrist is seen which may be related to degenerative spurring however an old or recent triquetral fracture cannot be excluded. There is some narrowing with spurring about the first carpal metacarpal joint. There is some soft tissue swelling seen overlying the wrist.? XR/XR wrist RT min 3V IMPRESSION: No definite acute fracture or dislocation of the right wrist. Degenerative change as described. Probable dorsal spurring about the wrist however less likely this may be related to a triquetral fracture. Dictated By: Yung Taylor MD Signed By: Electronically signed by Yung Taylor MD 08/21/22 1646 <RANJITH Shay - Last Filed: 08/21/22 18:49> Procedures Orthopedic Splinting/Casting Injury #1: Side: right <RANJITH Shay - Last Filed: 08/21/22 18:49> Upper Extremity Injury Location: wrist <RANJITH Shay - Last Filed: 08/21/22 18:49> Upper Extremity Immobilizer: wrist splint <RANJITH Shay - Last Filed: 08/21/22 18:49> Discharge Plan Discharge Clinical Impression: Acute wrist pain <RANJITH Espinoza Last Filed: 08/21/22 14:02> Patient Disposition: Home, Self-Care <RANJITH Espinoza - Last Filed: 08/21/22 14:02> Instructions: Wrist Injury (ED) <RANJITH Espinoza - Last Filed: 08/21/22 14:02> Additional Instructions: Follow up with your primary care provider and an orthopedic provider. Return to the emergency department immediately if your symptoms worsen or if you develop any dizziness, shortness of breath, difficulty breathing, chest pain, blurry vision, loss of vision, nausea, vomiting, abdominal pain, fever, chills, back pain, or any other complaints. <RANJITH Espinoza - Last Filed: 08/21/22 14:02> Prescriptions: No Action silver sulfadiazine [Silvadene] 1 % cream 1 appl topical BID Qty: 50 0RF Rx Instructions: apply a 1.5 mm thickness ketorolac 10 mg tablet 10 mg PO Q8H PRN (Reason: pain) Qty: 14 0RF cyclobenzaprine 10 mg tablet 10 mg PO Q8H Qty: 14 0RF prednisone 20 mg tablet 40 mg PO DAILY 5 Days Qty: 10 0RF oxycodone 5 mg tablet 5 mg PO Q6H PRN (Reason: pain) Qty: 14 0RF Rx Instructions: Partial Fill upon patient request. prednisone 20 mg tablet 40 mg PO DAILY Qty: 10 0RF cyclobenzaprine 10 mg tablet 10 mg PO TID PRN (Reason: muscle spasm) Qty: 14 0RF lidocaine 5 % adhesive patch,medicated 1 patch topical DAILY Qty: 15 0RF Rx Instructions: leave on most painful area for up to 12 hrs oxycodone 5 mg tablet 5 mg PO Q6H PRN (Reason: severe pain (scale score 7-10)) Qty: 6 0RF Rx Instructions: Partial Fill upon patient request. <RANJITH Espinoza - Last Filed: 08/21/22 14:02> [place]: [facility] [place] [facility] [place] (Call to establish and follow up with a primary care provider. If you already have a primary care provider, please follow up with them.) [facility] [place] [facility] Group] (Call to establish and follow up with a primary care provider. If you already have a primary care provider, please follow up with them.) [facility] [place] [facility]Provider Group] (Call to establish and follow up with a primary care provider. If you already have a primary care provider, please follow up with them.) [facility] [place]] (Call to establish and follow up with an orthopedic provider. ) <RANJITH Espinoza - Last Filed: 08/21/22 14:02> Interventions: ED Discharge Assessment Last Done: 08/21/22 15:23 <RANJITH Espinoza - Last Filed: 08/21/22 14:02> Discharge Date/Time: 08/21/22 15:24 <RANJITH Espinoza - Last Filed: 08/21/22 14:02> Print Language: Urdu <RANJITH Espinoza - Last Filed: 08/21/22 14:02>
[2022-08-21] MEDS: Ketorolac Tromethamine 15 MG/ML VIAL IM (15:17)
== END 2022-08-21 15:24 | disposition home or self-care (01) ==
PROVIDERS: Emergency Provider Emergency Medicine Emergency Medical Services
DX: M25.531 Pain in right wrist (principal); E11.9 Type 2 diabetes mellitus without complications; I10 Essential (primary) hypertension; Z79.899 Other long term (current) drug therapy
CPT/HCPCS: 73110; 96372; 99283; 99284; J1885

== ENCOUNTER 2022-09-29 10:47 | Emergency (ER) | payer MEDICARE, MEDICAID, SELFPAY ==
[2022-09-29 11:20] VITALS: BP 188/87; PULSE 80; RESP 20; TEMP 37.1; O2SAT 94; BMI 35.7
--- NOTE | 2022-09-29 11:21 | ED_ITS ---
HPI - Back Pain/Injury General Chief Complaint: General Medical <RANJITH Au - Last Filed: 09/29/22 11:24> Stated Complaint: body pain <RANJITH Au Last Filed: 09/29/22 11:24> Time Seen by Provider: 09/29/22 11:40 <RANJITH Au - Last Filed: 09/29/22 11:24> Source: patient <RANJITH Loza Last Filed: 09/29/22 18:32> Mode of arrival: ambulatory <RANJITH Loza Last Filed: 09/29/22 18:32> History of Present Illness HPI Narrative: 66-year-old female with a past medical history of hypertension, diabetes, sciatica, presenting to the ED complaining of acute on chronic sciatic pain x few days. Reports left lower back pain radiating down left lower extremity with associated numbness/tingling. Admits was recently helping need for clean her house and might have exacerbated symptoms. Has not been taking anything for pain at home, reports taking Percocet in the past with relief. Denies weakness, urinary incontinence/retention, fever, hematuria/dysuria <RANJITH Loza Last Filed: 09/29/22 18:32> MD elicited complaint: back pain <RANJITH Loza Last Filed: 09/29/22 18:32> Related Data Home Medications: Previous Rx's Medication Instructions Recorded silver sulfadiazine 1 % topical 1 appl topical BID #50 grams 07/27/21 cream (Silvadene) cyclobenzaprine 10 mg tablet 10 mg PO Q8H #14 tabs 05/28/22 ketorolac 10 mg tablet 10 mg PO Q8H PRN pain #14 tabs 05/28/22 oxycodone 5 mg tablet 5 mg PO Q6H PRN pain #14 tabs 05/28/22 prednisone 20 mg tablet 40 mg PO DAILY inflammation 5 days 05/28/22 #10 tabs cyclobenzaprine 10 mg tablet 10 mg PO TID PRN muscle spasm #14 07/30/22 tabs lidocaine 5 % topical patch 1 patch topical DAILY #15 ea 07/30/22 oxycodone 5 mg tablet 5 mg PO Q6H PRN severe pain (scale 07/30/22 score 7-10) #6 tabs prednisone 20 mg tablet 40 mg PO DAILY #10 tabs 07/30/22 cyclobenzaprine 5 mg tablet 5 mg PO Q8H PRN pain (scale score 09/29/22 7-10) 5 days #14 tabs hydrocodone 5 mg-acetaminophen 325 1 tab PO Q8H PRN pain, severe 3 09/29/22 mg tablet days #3 tabs lidocaine 5 % topical patch 1 patch topical DAILY PRN pain #30 09/29/22 (Lidoderm) ea naproxen 500 mg tablet 500 mg PO BID PRN pain 10 days #20 09/29/22 tabs <RANJITH Au Last Filed: 09/29/22 11:24> Allergies/Adverse Reactions: Allergies Allergy/AdvReac Type Severity Reaction Status Date / Time bupropion [From WELLBUTRIN] Allergy Unknown UNKNOWN Verified 09/29/22 11:22 ibuprofen [From MOTRIN] Allergy Unknown UNKNOWN Verified 09/29/22 11:22 Wellbutrin Allergy Unknown anaphylaxis Uncoded 09/29/22 11:22 <RANJITH Au Last Filed: 09/29/22 11:24> Review of Systems Review of Systems: Constitutional: No Fever, No Chills ENT/Mouth: No Ear Pain, No Nasal Congestion, No sore throat, No Rhinorrhea, No Swallowing Difficulty Cardiovascular: No Chest Pain, No SOB Respiratory: No Cough, No Sputum Gastrointestinal: No Nausea, No Vomiting, No Diarrhea, No Constipation, No Abdominal pain Genitourinary: No Dysuria, No Urinary Frequency, No Hematuria, No Urinary Incontinence/retention, No Urgency, No Flank Pain Musculoskeletal: +joint pain, No Myalgias, No Joint Swelling Skin: No Skin Lesions, No rash Neuro: No Weakness, + Numbness, + Paresthesias <RANJITH Loza Last Filed: 09/29/22 18:32> Yes all other systems are reviewed and are negative <RANJITH Loza Last Filed: 09/29/22 18:32> Constitutional: Constitutional: Reports as per HPI <RANJITH Loza Last Filed: 09/29/22 18:32> [facility] Past Medical History Attestation statement: The following information was validated with the patient. <RANJITH Loza Last Filed: 09/29/22 18:32> Medical History: Medical History Diabetes HTN (hypertension) <RANJITH Au - Last Filed: 09/29/22 11:24> Social History Social History: Social History Advance Directives: No Advance Directives Information Provided: Yes <RANJITH Au - Last Filed: 09/29/22 11:24> Physical Exam Vital Signs: Vital Signs: Last Vital Signs Temp 98.8 F 09/29/22 11:20 Pulse 80 09/29/22 11:20 Resp 20 09/29/22 11:20 BP 188/87 H 09/29/22 11:20 Pulse Ox 94 09/29/22 11:20 O2 Del Method Room Air 09/29/22 11:20 BMI result Body Mass Index 35.7 <RANJITH Au - Last Filed: 09/29/22 11:24> Vital Signs: Last Vital Signs Temp 98.8 F 09/29/22 11:20 Pulse 80 09/29/22 11:20 Resp 20 09/29/22 11:20 BP 188/87 H 09/29/22 11:20 Pulse Ox 94 09/29/22 11:20 O2 Del Method Room Air 09/29/22 11:20 BMI result Body Mass Index 35.7 <RANJITH Loza - Last Filed: 09/29/22 18:32> Const: General: cooperative, healthy appearing and no acute distress <RANJITH Loza - Last Filed: 09/29/22 18:32> Orientation/consciousness: patient oriented x3 <RANJITH Loza - Last Filed: 09/29/22 18:32> Limitations: no limitations <RANJITH Loza Last Filed: 09/29/22 18:32> HEENT: Head: Yes normal to inspection and Yes atraumatic <RANJITH Loza Last Filed: 09/29/22 18:32> Ears: hearing grossly normal bilaterally <RANJITH Loza Last Filed: 09/29/22 18:32> General nose exam: Normal external nose present <Livier Milantravon PA - Last Filed: 09/29/22 18:32> Face and sinus: Yes normal facial exam <Livier Milantravon PA - Last Filed: 09/29/22 18:32> Eyes: General: appearance normal, both eyes and all related structures <Livier Milanmonot PA - Last Filed: 09/29/22 18:32> EOM: EOMs intact bilaterally <Livier Milanmonot PA - Last Filed: 09/29/22 18:32> Neck: Neck: Yes normal visual inspection and Yes no meningeal signs <Livier Milanmonot PA - Last Filed: 09/29/22 18:32> Resp: Effort & Inspection: normal respiratory effort and no respiratory distress <Livier Milanmonot PA - Last Filed: 09/29/22 18:32> Cardio: Rate: regular rate <Livier Milantravon PA - Last Filed: 09/29/22 18:32> GI: Inspection: Yes normal to inspection <Livier Milantravon PA - Last Filed: 09/29/22 18:32> Palpation (GI): Soft to palpation, nontender, no guarding and not rigid <Livier Milantravon PA - Last Filed: 09/29/22 18:32> : General: Yes no CVA tenderness <Livier Milantravon PA - Last Filed: 09/29/22 18:32> Back/Spine/Pelvis: Other: No midline cervical/thoracic/lumbar spinous tenderness/step-off or deformity. + left lower lumbar MSK tenderness to palpation <Livier Alvarezt PA - Last Filed: 09/29/22 18:32> Back: no CVA tenderness <Livier Poulmonot, PA - Last Filed: 09/29/22 18:32> Skin: Rashes: no rashes <Livier Poulmonot PA - Last Filed: 09/29/22 18:32> Wounds: no wounds <Livier Poulmonot, PA - Last Filed: 09/29/22 18:32> Neuro: Other: Strength intact throughout. No saddle anesthesia. Sensation intact to light touch. Neurovascular intact distally <Livier Max PA - Last Filed: 09/29/22 18:32> General: patient oriented x3, gait normal, tone normal, moves all extremities and no meningeal signs <RANJITH Loza - Last Filed: 09/29/22 18:32> Gait exam (Neuro): Normal gait present <RANJITH Loza - Last Filed: 09/29/22 18:32> Extrem: General: Yes normal to inspection <RANJITH Loza - Last Filed: 09/29/22 18:32> Course Course Course Narrative: KAMILAH-11:22AM - 66yoF with a PMHX of HTN and sciatica who is presenting to the ER with complaints of sciatic flare that started on Friday worse today. Reports the pain goes down her left leg and she has numbness down into her ankle which is similar to her prior episodes. She reports is worse with ambulation or bending over. She denies any recent trauma, fevers, chest pain, shortness of breath, abdominal pain, flank pain, dysuria hematuria, urinary bowel incontinence or retention, saddle anesthesia. Reports that she normally gets a shot to help her pain while she is here. She denies any other symptoms complaints or concerns. On exam she has a normal steady gait. She is mildly hypertensive otherwise all other vitals are within normal limits. [place] [facility] and treatment. <RANJITH Au - Last Filed: 09/29/22 11:24> Medications Administered Discontinued Medications Generic Name Dose Route Start Last Admin Trade Name Freq PRN Reason Stop Dose Admin Ketorolac Tromethamine 30 mg 09/29/22 11:52 09/29/22 12:03 Ketorolac Tromethamine 30 Mg/Ml Vial IM 09/29/22 11:53 30 mg ONCE ONE Administration Lidocaine 1 patch 09/29/22 11:52 09/29/22 12:03 Lidocaine 4 % Patch Adh..Patch TRANSDERMA 09/29/22 11:53 1 patch ONCE ONE Administration Protocol <RANJITH Au - Last Filed: 09/29/22 11:24> Medications Administered Discontinued Medications Generic Name Dose Route Start Last Admin Trade Name Freq PRN Reason Stop Dose Admin Ketorolac Tromethamine 30 mg 09/29/22 11:52 09/29/22 12:03 Ketorolac Tromethamine 30 Mg/Ml Vial IM 09/29/22 11:53 30 mg ONCE ONE Administration Lidocaine 1 patch 09/29/22 11:52 09/29/22 12:03 Lidocaine 4 % Patch Adh..Patch TRANSDERMA 09/29/22 11:53 1 patch ONCE ONE Administration Protocol <RANJITH Loza - Last Filed: 09/29/22 18:32> Medical Decision Making Medical Decision Making [facility] Narrative: 66-year-old female with a past medical history of hypertension, diabetes, sciatica, presenting to the ED complaining of acute on chronic sciatic pain x few days. On exam vital signs stable, NAD, nontoxic appearing, no midline spinous tenderness through or red flag symptoms. Ambulating with steady gait. No saddle anesthesia. Concern for acute on chronic sciatic pain vs MSK pain/spasming or herniated disc. Low suspicion for cauda equina/cord compression, fracture, pyelo or epidural abscess Plan: IM Toradol, Lidoderm patch, PCP follow-up Please refer to course for remaining clinical decision making, interpretation of labs/imaging results, and discussions with consultants and/or family members. <RANJITH Loza - Last Filed: 09/29/22 18:32> Differential Diagnosis Differential Diagnoses: The differential diagnosis associated with the presentation includes <RANJITH Loza - Last Filed: 09/29/22 18:32> As above <RANJITH Loza - Last Filed: 09/29/22 18:32> Admission/Observation Consideration of admission/observation: Escalation of care including admission/observation considered <RANJITH Loza - Last Filed: 09/29/22 18:32> Lab Data [facility] Lab Attestation statement: I reviewed the patient's lab results. <RANJITH Loza - Last Filed: 09/29/22 18:32> Radiology Impression Discussion of test interpretation with radiology: I have reviewed the radiologist's reading. <RANJITH Loza - Last Filed: 09/29/22 18:32> External Record Review External record reviewed: Inpatient record, Office record, Outpatient record, Prior outpatient labs, Prior outpatient radiology, Primary care record and Outside ED record <RANJITH Loza Last Filed: 09/29/22 18:32> Discharge Plan Discharge Clinical Impression: Sciatica <RANJITH Au Last Filed: 09/29/22 11:24> Patient Disposition: Home, Self-Care <RANJITH Au Last Filed: 09/29/22 11:24> Instructions: Sciatica (ED) <RANJITH Au Last Filed: 09/29/22 11:24> Additional Instructions: Your pain is likely musculoskeletal Flexeril is a muscle relaxer, take at night as it makes you drowsy, do not drive, drink alcohol, or operate machinery while taking it Naproxen as an anti-inflammatory / pain medication, take with food Maceo was an opiate pain medication, take only when pain is severe for the next 3 days. Be aware Maceo has Tylenol mixed in do not exceed 4 g in 1 day In addition take Tylenol at home If symptoms persist or worsen, pain becomes unbearable, you developed urinary retention or incontinence, or weakness return to the ED <RANJITH Au Last Filed: 09/29/22 11:24> Prescriptions: New lidocaine [Lidoderm] 5 % adhesive patch,medicated 1 patch topical DAILY MDD remove after 12 hours PRN (Reason: pain) Qty: 30 0RF Rx Instructions: leave on most painful area for up to 12 hrs cyclobenzaprine 5 mg tablet 5 mg PO Q8H PRN (Reason: pain (scale score 7-10)) 5 Days Qty: 14 0RF hydrocodone-acetaminophen 5-325 mg tablet 1 tab PO Q8H PRN (Reason: pain, severe) 3 Days Qty: 3 0RF Rx Instructions: Partial Fill upon patient request. naproxen 500 mg tablet 500 mg PO BID PRN (Reason: pain) 10 Days Qty: 20 0RF No Action silver sulfadiazine [Silvadene] 1 % cream 1 appl topical BID Qty: 50 0RF Rx Instructions: apply a 1.5 mm thickness ketorolac 10 mg tablet 10 mg PO Q8H PRN (Reason: pain) Qty: 14 0RF cyclobenzaprine 10 mg tablet 10 mg PO Q8H Qty: 14 0RF prednisone 20 mg tablet 40 mg PO DAILY 5 Days Qty: 10 0RF oxycodone 5 mg tablet 5 mg PO Q6H PRN (Reason: pain) Qty: 14 0RF Rx Instructions: Partial Fill upon patient request. prednisone 20 mg tablet 40 mg PO DAILY Qty: 10 0RF cyclobenzaprine 10 mg tablet 10 mg PO TID PRN (Reason: muscle spasm) Qty: 14 0RF lidocaine 5 % adhesive patch,medicated 1 patch topical DAILY Qty: 15 0RF Rx Instructions: leave on most painful area for up to 12 hrs oxycodone 5 mg tablet 5 mg PO Q6H PRN (Reason: severe pain (scale score 7-10)) Qty: 6 0RF Rx Instructions: Partial Fill upon patient request. <RANJITH Au - Last Filed: 09/29/22 11:24> Interventions: ED Discharge Assessment Last Done: 09/29/22 12:09 <RANJITH Au - Last Filed: 09/29/22 11:24> Discharge Date/Time: 09/29/22 12:09 <RANJITH Au - Last Filed: 09/29/22 11:24>
[2022-09-29] MEDS: Ketorolac Tromethamine 30 MG/ML VIAL IM (12:03)
[2022-09-29] MEDS: Lidocaine 4 % Patch ADH..PATCH 1 PATCH TRANSDERMA (12:03)
== END 2022-09-29 12:09 | disposition home or self-care (01) ==
LOC: HO.ED 12:01
PROVIDERS: Emergency Provider Emergency Medicine
DX: M54.42 Lumbago with sciatica, left side (principal); Z79.899 Other long term (current) drug therapy
CPT/HCPCS: 96372; 99283; 99284; J1885

== ENCOUNTER 2022-12-06 17:30 | Emergency (ER) | payer MEDICARE, MEDICAID, SELFPAY ==
[2022-12-06 17:36] VITALS: BP 185/94; PULSE 77; RESP 18; TEMP 36.7; O2SAT 98; BMI 36.6
--- NOTE | 2022-12-06 17:36 | ED.GENADULT ---
HPI - General Adult General Chief complaint: Back Pain/Injury Stated complaint: Back pain Time Seen by Provider: 12/06/22 17:43 Source: patient Mode of arrival: ambulatory Limitations: no limitations History of Present Illness HPI narrative: Patient is a 67 year old assigned female at with a history of sciatica presenting to the emergency department today with another sciatic flare. Patient states that she has left sided low back pain that radiates into the top of her left leg. Patient states that this is consistent with her previous sciatica flares. Patient denies any dizziness, lightheadedness, abdominal pain, nausea, vomiting, fever, chills, blurry vision, double vision, loss of vision, chest pain, difficulty breathing, shortness of breath, night sweats, pain with urination, increased urinary frequency, increased urinary urgency, blood in her urine or stool, syncope or a near syncopal episode, recent trauma or falls, bowel incontinence, bladder incontinence, bowel retention, bladder retention, or any other complaints at this time. Onset (ago): day(s) Location: back Radiation: extremity Severity: mild Severity scale (1-10): 3 Quality: aching Pain Consistency: intermittent Relieving factors: none Exacerbating factors: none Associated symptoms: denies other symptoms Treatments prior to arrival: none Related Data Previous Rx's Medication Instructions Recorded cyclobenzaprine 5 mg tablet 5 mg PO TID PRN low back pain 7 12/06/22 days #21 tabs naproxen 500 mg tablet 500 mg PO BID 7 days #14 tabs 12/06/22 Allergies Allergy/AdvReac Type Severity Reaction Status Date / Time bupropion [From WELLBUTRIN] Allergy Unknown UNKNOWN Verified 12/06/22 17:43 ibuprofen [From MOTRIN] Allergy Unknown UNKNOWN Verified 12/06/22 17:43 Wellbutrin Allergy Unknown anaphylaxis Uncoded 09/29/22 11:22 Review of Systems Constitutional: Constitutional: Reports no additional constitutional complaints, Denies chills, Denies fever(s) and Denies night sweats Eyes: Eyes: Reports no additional eye complaints, Denies blurry vision, Denies change in vision, Denies diplopia, Denies eye discharge, Denies loss of vision and Denies eye pain ENT: Denies dizziness Cardiovascular: Cardiovascular: Reports no additional cardiovascular complaints, Denies chest pain, Denies lightheadedness, Denies Loss of Consciousness and Denies dyspnea Respiratory: Respiratory: Reports no additional respiratory complaints and Denies dyspnea Gastrointestinal: Gastrointestinal: Reports no additional gastrointestinal complaints, Denies abdominal pain, Denies melena, Denies hematochezia, Denies change in bowel habits and Denies change in stool character Genitourinary: Genitourinary: Denies hematuria, Denies urinary frequency, Denies dysuria, Denies urinary incontinence, Denies urinary hesitancy and Denies urinary urgency Musculoskeletal: Musculoskeletal: Reports no additional musculoskeletal complaints, Reports back pain, Denies numbness and Denies tingling Neurologic: Denies dizziness, Denies loss of vision, Denies numbness and Denies tingling Psychiatric: Psychiatric: Reports no additional psychiatric complaints Endocrine: Endocrine: Reports no additional endocrine complaints Hematologic/Lymphatic: Hematologic/Lymphatic: Reports no additional hematologic/lymphatic complaints Allergic/Immunologic: Allergic/Immunologic: Reports no additional allergic/immunologic complaints [facility] Past Medical History Attestation statement: The following information was validated with the patient. Source: old records reviewed and nursing notes reviewed Medical History Diabetes HTN (hypertension) Physical Exam ED Vital Signs: Vital Signs - 24 hr 12/06/22 17:36 Temperature 98.0 F Pulse Rate 77 Respiratory Rate 18 Blood Pressure 185/94 H Pulse Oximetry 98 Oxygen Delivery Method Room Air BMI result Body Mass Index 36.6 Const General: cooperative, no acute distress, alert and awake Nutritional Appearance: well nourished Orientation/consciousness: patient oriented x3 Limitations: no limitations [facility] Head: Yes normal to inspection and Yes atraumatic Ears: hearing grossly normal bilaterally and external ears normal General nose exam: Normal external nose present, no nasal discharge noted and no epistaxis Face and sinus: Yes normal facial exam, No abrasion and No laceration Mouth: Normal oral and palatal mucosa present, no drooling and no muffled voice Eyes General: appearance normal, both eyes and all related structures Periorbital: periorbital findings normal Eyelids: Yes eyelids normal Conjunctivae: conjunctivae normal Pupils: Equal, round and reactive pupils present EOM: EOMs intact bilaterally Neck Neck: Yes normal visual inspection, Yes full ROM and Yes no lymphadenopathy Chest Chest palpation & inspection: normal inspection of the chest Resp Effort & Inspection: normal respiratory effort and able to speak in complete sentences GI Inspection: Yes normal to inspection General: Yes no CVA tenderness Back/Spine/Pelvis Back: no CVA tenderness Cervical Spine: normal cervical lordosis and cervical ROM normal Thoracic/Lumbar Spine: thoracic and lumbar spine normal to inspection and thoraco-lumbar ROM normal Neuro General: patient oriented x3 and moves all extremities Cranial nerves: Yes Equal, round and reactive pupils present Cognition (Neuro): normal cognition Motor exam (neuro): 5/5 motor strength present throughout Sensory Exam: Normal double simultaneous stimulation for sensation Coordination: [id number] test normal Extrem General: Yes normal to inspection, Yes full ROM and Yes capillary refill normal Psych Appearance: grossly normal Mental Status: mental status grossly normal Affect: normal affect Attitude: cooperative Thought process: Normal thought process present Thought content: Normal thought content present Insight: Good insight present (Psych) Medical Decision Making Medical Decision Making MDM Narrative: Patient is a 67 year old assigned female at with a history of sciatica presenting to the emergency department today with left sided low back pain. Patient's physical exam was unremarkable. I explained my physical exam findings to the patient. I answered all questions asked by the patient. Patient received IM Toradol which she stated helped her symptoms significantly. I stressed the importance of the patient taking her medication as prescribed. I stressed the importance of the patient following up with her primary care provider. I stressed the importance of the patient returning to the emergency department immediately if her symptoms were to worsen or if she were to develop any dizziness, shortness of breath, difficulty breathing, chest pain, blurry vision, loss of vision, nausea, vomiting, abdominal pain, fever, chills, back pain, or any other complaints. Patient verbalized agreement and understanding with this treatment plan and discharge. Differential Diagnosis Differential Diagnoses: The differential diagnosis associated with the presentation includes sciatica, low back pain, chronic back pain Discharge Plan Discharge Clinical Impression: Sciatica Patient Disposition: Home, Self-Care Instructions: Sciatica (ED), Lower Back Exercises (ED) Additional Instructions: Follow up with your primary care provider and a grants specialist. Return to the emergency department immediately if your symptoms worsen or if you develop any dizziness, shortness of breath, difficulty breathing, chest pain, blurry vision, loss of vision, nausea, vomiting, abdominal pain, fever, chills, back pain, or any other complaints. Prescriptions: New cyclobenzaprine 5 mg tablet 5 mg PO TID PRN (Reason: low back pain) 7 Days Qty: 21 0RF naproxen 500 mg tablet 500 mg PO BID 7 Days Qty: 14 0RF Discontinued silver sulfadiazine [Silvadene] 1 % cream 1 appl topical BID Qty: 50 0RF Rx Instructions: apply a 1.5 mm thickness ketorolac 10 mg tablet 10 mg PO Q8H PRN (Reason: pain) Qty: 14 0RF cyclobenzaprine 10 mg tablet 10 mg PO Q8H Qty: 14 0RF prednisone 20 mg tablet 40 mg PO DAILY 5 Days Qty: 10 0RF oxycodone 5 mg tablet 5 mg PO Q6H PRN (Reason: pain) Qty: 14 0RF Rx Instructions: Partial Fill upon patient request. prednisone 20 mg tablet 40 mg PO DAILY Qty: 10 0RF cyclobenzaprine 10 mg tablet 10 mg PO TID PRN (Reason: muscle spasm) Qty: 14 0RF lidocaine 5 % adhesive patch,medicated 1 patch topical DAILY Qty: 15 0RF Rx Instructions: leave on most painful area for up to 12 hrs oxycodone 5 mg tablet 5 mg PO Q6H PRN (Reason: severe pain (scale score 7-10)) Qty: 6 0RF Rx Instructions: Partial Fill upon patient request. lidocaine [Lidoderm] 5 % adhesive patch,medicated 1 patch topical DAILY MDD remove after 12 hours PRN (Reason: pain) Qty: 30 0RF Rx Instructions: leave on most painful area for up to 12 hrs cyclobenzaprine 5 mg tablet 5 mg PO Q8H PRN (Reason: pain (scale score 7-10)) 5 Days Qty: 14 0RF hydrocodone-acetaminophen 5-325 mg tablet 1 tab PO Q8H PRN (Reason: pain, severe) 3 Days Qty: 3 0RF Rx Instructions: Partial Fill upon patient request. naproxen 500 mg tablet 500 mg PO BID PRN (Reason: pain) 10 Days Qty: 20 0RF [place] [facility] [place]] (Call to establish and follow up with a primary care provider. If you already have a primary care provider, please follow up with them.) [facility] [place] Group] (Call to establish and follow up with a primary care provider. If you already have a primary care provider, please follow up with them.) [facility] [[place] Group] (Call to establish and follow up with a primary care provider. If you already have a primary care provider, please follow up with them.) [facility] [Provider Group] (Call to establish and follow up with a spine speicalist.) Print Language: [place]ian
[2022-12-06] MEDS: Ketorolac Tromethamine 15 MG/ML VIAL IM (18:24)
== END 2022-12-06 23:48 | disposition home or self-care (01) ==
PROVIDERS: Emergency Provider Internal Medicine
DX: M54.42 Lumbago with sciatica, left side (principal)
CPT/HCPCS: 96372; 99282; 99284; J1885

== ENCOUNTER 2023-02-01 20:45 | Emergency (ER) | payer MEDICARE, MEDICAID, SELFPAY ==
[2023-02-01 20:55] VITALS: BP 181/99; PULSE 74; RESP 18; TEMP 37.1; O2SAT 97; BMI 36.0
[2023-02-01 21:37] VITALS: BP 178/83; PULSE 74; RESP 20; TEMP 36.6; O2SAT 97
--- NOTE | 2023-02-01 22:33 | ED_ITS ---
HPI - Back Pain/Injury General Chief Complaint: Back Pain/Injury Stated Complaint: lower back and left leg pain Time Seen by Provider: 02/01/23 22:32 Source: patient Mode of arrival: ambulatory Limitations: no limitations History of Present Illness HPI Narrative: Patient with history of chronic left sciatica been to pain clinic and multiple doctors in the past used to be on oxycodone and she is not getting it for last 1 month comes here for increased pain in left leg similar to that in the past patient had previous MRI and been told she has osteoarthritis no recent fall no recent injury Related Data Previous Rx's Medication Instructions Recorded cyclobenzaprine 5 mg tablet 5 mg PO TID PRN low back pain 7 12/06/22 days #21 tabs naproxen 500 mg tablet 500 mg PO BID 7 days #14 tabs 12/06/22 cyclobenzaprine 10 mg tablet 10 mg PO Q8H #20 tabs 02/01/23 oxycodone-acetaminophen 5 mg-325 1 tab PO Q6H PRN pain #20 tabs 02/01/23 mg tablet (Percocet) Allergies Allergy/AdvReac Type Severity Reaction Status Date / Time bupropion [From WELLBUTRIN] Allergy Unknown UNKNOWN Verified 12/06/22 17:43 ibuprofen [From MOTRIN] Allergy Unknown UNKNOWN Verified 12/06/22 17:43 Wellbutrin Allergy Unknown anaphylaxis Uncoded 09/29/22 11:22 Review of Systems Review of Systems: Yes all other systems are reviewed and are negative [facility] Past Medical History Medical History Diabetes HTN (hypertension) Social History Social History Advance Directives: No Advance Directives Information Provided: No Physical Exam Vital Signs: Vital Signs: Last Vital Signs Temp 98 F 02/01/23 21:37 Pulse 74 02/01/23 21:37 Resp 20 02/01/23 21:37 BP 178/83 H 02/01/23 21:37 Pulse Ox 97 02/01/23 21:37 O2 Del Method Room Air 02/01/23 21:37 BMI result Body Mass Index 36.0 Appearance: Alert. Oriented X3. No acute distress. CVS: Normal heart rate and rhythm. Pulses normal. Respiratory: No respiratory distress. Equal air entry bilateral, Abdomen: Soft and nontender. Bowel sounds are present, no mass palpable, no CVA tenderness back: Tenderness in left lower back SLR positive left leg and 60 degrees motor weakness Skin: Skin warm and dry. Normal skin color. Normal skin turgor. Extremities: No lower extremity edema. No calf tenderness Neuro: Oriented X 3. No motor deficit. No sensory deficit. Medications Administered Discontinued Medications Generic Name Dose Route Start Last Admin Trade Name Freq PRN Reason Stop Dose Admin Morphine Sulfate 15 mg 02/01/23 22:42 02/01/23 22:48 Morphine Sulfate Immed Release 15 Mg Tablet PO 02/01/23 22:43 15 mg ONCE ONE Administration Medical Decision Making Medical Decision Making [facility] Narrative: Patient with left sciatica will discharge patient home on Percocet and advised to follow-up with pain clinic Discharge Plan Discharge Clinical Impression: Sciatica Patient Disposition: Home, Self-Care Instructions: Sciatica (ED) Additional Instructions: Take pain medication as prescribed along with muscle relaxants and follow with pain clinic Prescriptions: New cyclobenzaprine 10 mg tablet 10 mg PO Q8H Qty: 20 0RF oxycodone-acetaminophen [Percocet] 5-325 mg tablet 1 tab PO Q6H PRN (Reason: pain) Qty: 20 0RF Rx Instructions: Partial Fill upon patient request. No Action cyclobenzaprine 5 mg tablet 5 mg PO TID PRN (Reason: low back pain) 7 Days Qty: 21 0RF naproxen 500 mg tablet 500 mg PO BID 7 Days Qty: 14 0RF Referrals: Charles Nichols MD [Physician] - 1 week Interventions: ED Discharge Assessment Last Done: 02/01/23 22:50 Discharge Date/Time: 02/01/23 22:51
[2023-02-01] MEDS: Morphine Sulfate Immed Release 15 MG TABLET PO (22:48)
== END 2023-02-01 22:51 | disposition home or self-care (01) ==
PROVIDERS: Emergency Provider Internal Medicine; PCP Registered Nurse
DX: M54.42 Lumbago with sciatica, left side (principal)
CPT/HCPCS: 99283

== ENCOUNTER 2023-06-23 12:12 | Emergency (ER) | payer MEDICARE, MEDICAID, SELFPAY ==
--- NOTE | 2023-06-23 12:36 | ED.GENADULT ---
HPI - General Adult General Chief complaint: General Medical Stated complaint: Sciatic pain Time Seen by Provider: 06/23/23 12:42 Source: patient Mode of arrival: ambulatory Limitations: no limitations History of Present Illness HPI narrative: Patient is a 67 year old assigned female at with a history of sciatica presenting to the emergency department today with a sciatic flare. Patient states that she was doing a lot of shoveling yesterday and ever since, she has had increased pain. Patient denies any dizziness, lightheadedness, abdominal pain, nausea, vomiting, fever, chills, blurry vision, double vision, loss of vision, chest pain, difficulty breathing, shortness of breath, night sweats, pain with urination, increased urinary frequency, increased urinary urgency, blood in her urine or stool, syncope or a near syncopal episode, bowel incontinence, bladder incontinence, bowel retention, bladder retention, or any other complaints at this time. Onset (ago): day(s) (1) Location: back Severity: mild Severity scale (1-10): 3 Quality: aching and dull Pain Consistency: constant Relieving factors: none Exacerbating factors: none Associated symptoms: denies other symptoms Treatments prior to arrival: none Related Data Previous Rx's Medication Instructions Recorded cyclobenzaprine 5 mg tablet 5 mg PO TID PRN low back pain 7 12/06/22 days #21 tabs naproxen 500 mg tablet 500 mg PO BID 7 days #14 tabs 12/06/22 cyclobenzaprine 10 mg tablet 10 mg PO Q8H #20 tabs 02/01/23 oxycodone-acetaminophen 5 mg-325 1 tab PO Q6H PRN pain #20 tabs 02/01/23 mg tablet (Percocet) cyclobenzaprine 5 mg tablet 5 mg PO TID PRN muscle spasm 7 06/23/23 days #21 tabs Allergies Allergy/AdvReac Type Severity Reaction Status Date / Time bupropion [From WELLBUTRIN] Allergy Unknown UNKNOWN Verified 12/06/22 17:43 ibuprofen [From MOTRIN] Allergy Unknown UNKNOWN Verified 12/06/22 17:43 Wellbutrin Allergy Unknown anaphylaxis Uncoded 09/29/22 11:22 Review of Systems Constitutional: Constitutional: Reports no additional constitutional complaints, Denies chills, Denies fever(s) and Denies night sweats Eyes: Eyes: Reports no additional eye complaints, Denies blurry vision, Denies change in vision, Denies diplopia, Denies eye discharge, Denies loss of vision and Denies eye pain ENT: Denies dizziness Cardiovascular: Cardiovascular: Reports no additional cardiovascular complaints, Denies chest pain, Denies lightheadedness, Denies Loss of Consciousness and Denies dyspnea Respiratory: Respiratory: Reports no additional respiratory complaints and Denies dyspnea Gastrointestinal: Gastrointestinal: Reports no additional gastrointestinal complaints, Denies abdominal pain, Denies melena, Denies hematochezia, Denies change in bowel habits and Denies change in stool character Genitourinary: Genitourinary: Denies hematuria, Denies urinary frequency, Denies dysuria, Denies urinary incontinence, Denies urinary hesitancy and Denies urinary urgency Musculoskeletal: Musculoskeletal: Reports no additional musculoskeletal complaints, Reports back pain, Denies numbness and Denies tingling Neurologic: Denies dizziness, Denies loss of vision, Denies numbness and Denies tingling Psychiatric: Psychiatric: Reports no additional psychiatric complaints Endocrine: Endocrine: Reports no additional endocrine complaints Hematologic/Lymphatic: Hematologic/Lymphatic: Reports no additional hematologic/lymphatic complaints Allergic/Immunologic: Allergic/Immunologic: Reports no additional allergic/immunologic complaints PMFSH Past Medical History Attestation statement: The following information was validated with the patient. Source: old records reviewed and nursing notes reviewed Onset Date is defined in the Problem List Problems that require an onset date and time if occurred within 24 hrs of arrival to the ED Aortic Dissection and Rupture; Neurologic impairment; Cardiopulmonary Arrest; Endotracheal Intubation; Insertion or Replacement of Mechanical Circulatory Assist Device Medical History Diabetes HTN (hypertension) Social History Social History Advance Directives: No Advance Directives Information Provided: Yes Physical Exam ED Vital Signs: Vital Signs - 24 hr 06/23/23 12:37 Temperature 98.2 F Pulse Rate 70 Respiratory Rate 18 Blood Pressure 178/80 H Pulse Oximetry 97 Oxygen Delivery Method Room Air BMI result Body Mass Index 35.6 Const General: cooperative, no acute distress, alert and awake Nutritional Appearance: well nourished Orientation/consciousness: patient oriented x3 Limitations: no limitations HENMT Head: Yes normal to inspection and Yes atraumatic Ears: hearing grossly normal bilaterally and external ears normal General nose exam: Normal external nose present, no nasal discharge noted and no epistaxis Face and sinus: Yes normal facial exam, No abrasion and No laceration Mouth: Normal oral and palatal mucosa present, no drooling and no muffled voice Eyes General: appearance normal, both eyes and all related structures Periorbital: periorbital findings normal Eyelids: Yes eyelids normal Conjunctivae: conjunctivae normal Pupils: Equal, round and reactive pupils present EOM: EOMs intact bilaterally Neck Neck: Yes normal visual inspection, Yes full ROM and Yes no lymphadenopathy Chest Chest palpation & inspection: normal inspection of the chest Resp Effort & Inspection: normal respiratory effort and able to speak in complete sentences GI Inspection: Yes normal to inspection General: Yes no CVA tenderness Back/Spine/Pelvis Back: no CVA tenderness Cervical Spine: normal cervical lordosis and cervical ROM normal Thoracic/Lumbar Spine: thoracic and lumbar spine normal to inspection Pelvis: no pain with anterior-posterior compression Neuro General: patient oriented x3 and moves all extremities Cranial nerves: Yes Equal, round and reactive pupils present Cognition (Neuro): normal cognition Motor exam (neuro): 5/5 motor strength present throughout Sensory Exam: Normal double simultaneous stimulation for sensation Coordination: [id number] test normal Extrem General: Yes normal to inspection, Yes full ROM and Yes capillary refill normal Psych Appearance: grossly normal Mental Status: mental status grossly normal Affect: normal affect Attitude: cooperative Thought process: Normal thought process present Thought content: Normal thought content present Insight: Good insight present (Psych) Medications Administered Discontinued Medications Generic Name Dose Route Start Last Admin Trade Name Erasmo PRN Reason Stop Dose Admin Ketorolac Tromethamine 15 mg 06/23/23 12:39 06/23/23 12:49 Ketorolac Tromethamine 15 Mg/Ml Vial IM 06/23/23 12:40 15 mg ONCE ONE Administration Medical Decision Making Medical Decision Making [facility] Narrative: Patient is a 67 year old assigned female at with a history of sciatica presenting to the emergency department today with low back pain after shoveling. Patient's physical exam was unremarkable. I explained my physical exam findings to the patient. I answered all questions asked by the patient. Patient received IM Toradol which she stated helped her symptoms significantly. I stressed the importance of the patient taking her medication as prescribed. I stressed the importance of the patient following up with her primary care provider. I stressed the importance of the patient returning to the emergency department immediately if her symptoms were to worsen or if she were to develop any dizziness, shortness of breath, difficulty breathing, chest pain, blurry vision, loss of vision, nausea, vomiting, abdominal pain, fever, chills, back pain, or any other complaints. Patient verbalized agreement and understanding with this treatment plan and discharge. Differential Diagnosis Differential Diagnoses: The differential diagnosis associated with the presentation includes Sciatica pain Low back pain Admission/Observation Consideration of admission/observation: Escalation of care including admission/observation considered Patient would have been admitted to the hospital had her clinical presentation warranted hospital admission. Tests considered The following testing was considered but not selected: Imaging of the spine was considered however, the patient's clinical presentation does not warrant it at this time. I explained this information to the patient and the patient verbalized agreement and understanding. Discharge Plan Discharge Clinical Impression: Sciatica Patient Disposition: Home, Self-Care Instructions: Sciatica (ED) Additional Instructions: Follow up with your primary care provider. Return to the emergency department immediately if your symptoms worsen or if you develop any dizziness, shortness of breath, difficulty breathing, chest pain, blurry vision, loss of vision, nausea, vomiting, abdominal pain, fever, chills, back pain, or any other complaints. You mentioned needing a new dentist so I provided you with a list of dentists. Call or visit any of the clinics below to establish with a dentist: [facility] [address] [place] [address] [facility] [[email or web address]] [address] [facility], [address] [address] [place] [address] [facility] [address] [place] [id number] [facility] [address] [place] [address] [place] [address] [place] [address] Prescriptions: New cyclobenzaprine 5 mg tablet 5 mg PO TID PRN (Reason: muscle spasm) 7 Days Qty: 21 0RF No Action cyclobenzaprine 5 mg tablet 5 mg PO TID PRN (Reason: low back pain) 7 Days Qty: 21 0RF naproxen 500 mg tablet 500 mg PO BID 7 Days Qty: 14 0RF cyclobenzaprine 10 mg tablet 10 mg PO Q8H Qty: 20 0RF oxycodone-acetaminophen [Percocet] 5-325 mg tablet 1 tab PO Q6H PRN (Reason: pain) Qty: 20 0RF Rx Instructions: Partial Fill upon patient request. Referrals: [facility] Family Medicine [Provider Group] (Call to establish and follow up with a primary care provider. If you already have a primary care provider, please follow up with them.) [facility] Primary CareErik [Provider Group] (Call to establish and follow up with a primary care provider. If you already have a primary care provider, please follow up with them.) [facility] Primary Care,Erin [Provider Group] (Call to establish and follow up with a primary care provider. If you already have a primary care provider, please follow up with them.) Interventions: ED Discharge Assessment Last Done: 06/23/23 12:54 Print Language: Burundian
[2023-06-23 12:37] VITALS: BP 178/80; PULSE 70; RESP 18; TEMP 36.8; O2SAT 97; BMI 35.6
== END 2023-06-23 12:55 | disposition home or self-care (01) ==
PROVIDERS: Emergency Provider Emergency Medicine
DX: M54.40 Lumbago with sciatica, unspecified side (principal); Z79.899 Other long term (current) drug therapy
CPT/HCPCS: 96372; 99283; 99284; J1885

== ENCOUNTER 2023-09-08 16:56 | Emergency (ER) | payer MEDICARE, MEDICAID, SELFPAY ==
[2023-09-08 18:27] VITALS: BP 167/87; PULSE 74; RESP 18; TEMP 36.6; O2SAT 97; BMI 34.8
--- NOTE | 2023-09-08 18:27 | ED.GENADULT ---
HPI - General Adult General Chief complaint: Back Pain/Injury Stated complaint: lower back pain radiating down left leg Time Seen by Provider: 09/08/23 19:00 Source: patient Mode of arrival: ambulatory History of Present Illness HPI narrative: 67-year-old female with presentation for self-reported acute exacerbation of her underlying left sciatica and denies any bowel or bladder dysfunction or left lower extremity weakness or any numbness within the groin area. Patient states that she helped her elderly neighbor shower this morning, she denies any fevers or chills. Patient informs me that lidocaine patch and muscle relaxants do not help. Patient denies any chest pain, shortness of breath. Related Data Previous Rx's Medication Instructions Recorded cyclobenzaprine 5 mg tablet 5 mg PO TID PRN low back pain 7 12/06/22 days #21 tabs naproxen 500 mg tablet 500 mg PO BID 7 days #14 tabs 12/06/22 cyclobenzaprine 10 mg tablet 10 mg PO Q8H #20 tabs 02/01/23 oxycodone-acetaminophen 5 mg-325 1 tab PO Q6H PRN pain #20 tabs 02/01/23 mg tablet (Percocet) cyclobenzaprine 5 mg tablet 5 mg PO TID PRN muscle spasm 7 06/23/23 days #21 tabs ketorolac 10 mg tablet 10 mg PO Q8H PRN pain #20 tabs 09/08/23 Allergies Allergy/AdvReac Type Severity Reaction Status Date / Time bupropion [From WELLBUTRIN] Allergy Unknown UNKNOWN Verified 12/06/22 17:43 ibuprofen [From MOTRIN] Allergy Unknown UNKNOWN Verified 12/06/22 17:43 Wellbutrin Allergy Unknown anaphylaxis Uncoded 09/29/22 11:22 Review of Systems Review of Systems: Pertinent positives and negatives as stated in HPI [facility] Past Medical History Source: nursing notes reviewed Medical History Diabetes HTN (hypertension) Social History Social History Advance Directives: No Advance Directives Information Provided: Yes Physical Exam ED Vital Signs: Vital Signs - 24 hr 09/08/23 18:27 09/08/23 20:18 Temperature 97.9 F 0 F L Pulse Rate 74 68 Respiratory Rate 18 16 Blood Pressure 167/87 H 195/86 H Pulse Oximetry 97 96 Oxygen Delivery Method Room Air Room Air BMI result Body Mass Index 34.8 VITAL SIGNS: Reviewed. GENERAL: Well developed, well nourished, in no acute distress. HEAD: Normocephalic/atraumatic EYES: PERRLA, EOMI EARS: Ext canals without abnormality NOSE: Nares patent bilateral OROPHARYNX: no oral lesions noted, posterior pharynx clear NECK: Supple, no adenopathy LUNGS: Normal breath sounds. No adventitious sounds or accessory muscle use. SpO2<96> CARDIOVASCULAR: Regular rate and rhythm without noted murmurs ABDOMEN: Soft, non-tender, non-distended with bowel sounds. BACK: No midline vertebral tenderness to palpation or step-offs noted. MUSCULOSKELETAL: No tenderness, deformities, or effusions noted on gross inspection. EXTREMITIES: No cyanosis, clubbing or edema. SKIN: Inspection of the skin reveals no rashes NEUROLOGIC: Alert and oriented x 4. Strength and sensation to light touch were grossly intact x 4. Course Course Course Narrative: RME performed by Cinthya Vasquez PA-C. Patient is a 67 year old assigned female at presenting to the emergency department with acute on chronic sciatic back pain. Patient requesting something stronger than Flexeril or OTC medications. Specifically asked for Hydrocodone. Explained to the patient I was uncomfortable prescribing those from triage and she requested to wait to be seen by someone in the back . Detailed physical exam and review of systems are deferred to the mental health clinician. Patient placed back in the waiting room pending room availability. Medications Administered Discontinued Medications Generic Name Dose Route Start Last Admin Trade Name Erasmo PRN Reason Stop Dose Admin Acetaminophen 975 mg 09/08/23 19:48 09/08/23 20:10 Acetaminophen 325 Mg Tablet PO 09/08/23 19:49 975 mg ONCE ONE Administration Ketorolac Tromethamine 15 mg 09/08/23 19:48 09/08/23 20:10 Ketorolac Tromethamine 15 Mg/Ml Vial IM 09/08/23 19:49 15 mg ONCE ONE Administration Medical Decision Making Medical Decision Making MDM Narrative: 67-year-old female with history and clinical presentation, DDX: Lumbar radiculopathy, sciatica, no concern for cauda equina or cord compression. Patient adamantly denies any urinary symptoms and states that Tylenol and Toradol work well for her. Patient received Tylenol and Toradol and was discharged with a prescription for the remaining course of Toradol. Patient has a follow-up appointment with her primary care provider. Differential Diagnosis Differential Diagnoses: The differential diagnosis associated with the presentation includes Please see the discussion above Admission/Observation Consideration of admission/observation: Escalation of care including admission/observation considered Please see the discussion above External Record Review External record reviewed: Outpatient record and Prior outpatient labs Critical Care Time Critical Care Time Critical Care Time: Yes Total Critical Care Time: 30 Attestation: I personally attest to this time spent taking care of the patient. Discharge Plan Discharge Clinical Impression: Lumbar radiculopathy, Acute exacerbation of chronic low back pain Patient Disposition: Home, Self-Care Instructions: Sciatica (ED), Lumbar Radiculopathy (ED), Lower Back Exercises (ED) Additional Instructions: 1. Tylenol 1000 mg, orally, every 6 hours as needed for pain control. Do not exceed 4000 mg within 24 hours. 2. Follow-up with your primary care doctor as scheduled. Return to the ER for any worsening symptoms. Prescriptions: New ketorolac 10 mg tablet 10 mg PO Q8H PRN (Reason: pain) Qty: 20 0RF Rx Instructions: maximum total duration of 5 days from all oral, intranasal, or parenteral formulations No Action cyclobenzaprine 5 mg tablet 5 mg PO TID PRN (Reason: low back pain) 7 Days Qty: 21 0RF naproxen 500 mg tablet 500 mg PO BID 7 Days Qty: 14 0RF cyclobenzaprine 10 mg tablet 10 mg PO Q8H Qty: 20 0RF oxycodone-acetaminophen [Percocet] 5-325 mg tablet 1 tab PO Q6H PRN (Reason: pain) Qty: 20 0RF Rx Instructions: Partial Fill upon patient request. cyclobenzaprine 5 mg tablet 5 mg PO TID PRN (Reason: muscle spasm) 7 Days Qty: 21 0RF Referrals: Shefali Warner NP [Primary Care Provider] - Interventions: ED Discharge Assessment Last Done: 09/08/23 20:18 Discharge Date/Time: 09/08/23 20:19
[2023-09-08] MEDS: Ketorolac Tromethamine 15 MG/ML VIAL IM (20:10)
[2023-09-08] MEDS: Acetaminophen 325 MG TABLET 975 MG PO (20:10)
[2023-09-08 20:18] VITALS: BP 195/86; PULSE 68; RESP 16; TEMP -17.7; TEMP 0; O2SAT 96
== END 2023-09-08 20:19 | disposition home or self-care (01) ==
PROVIDERS: Emergency Provider Student in an Organized Health Care Education/Training Program; PCP Nurse Practitioner Family
DX: M54.16 Radiculopathy, lumbar region (principal); G89.29 Other chronic pain; M54.50 Low back pain, unspecified; E11.9 Type 2 diabetes mellitus without complications; I10 Essential (primary) hypertension
CPT/HCPCS: 96372; 99283; 99284; J1885

== ENCOUNTER 2023-11-01 12:14 | Emergency (ER) | payer OTHER, MEDICARE, MEDICAID, SELFPAY ==
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
[2023-11-01 12:23] VITALS: BP 194/80; PULSE 71; RESP 18; TEMP 36.8; O2SAT 98; BMI 34.7
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
[2023-11-01 13:04] VITALS: BP 192/73; PULSE 62; RESP 14; O2SAT 97
[2023-11-01] MEDS: Ketorolac Tromethamine 30 MG/ML VIAL IM (14:04)
[2023-11-01 15:14] VITALS: BP 194/71; PULSE 63; RESP 15; O2SAT 98
[2023-11-01 15:21] VITALS: BP 194/71; PULSE 63; RESP 15; TEMP 36.8; O2SAT 98
== END 2023-11-01 15:22 | disposition home or self-care (01) ==
PROVIDERS: Emergency Provider Emergency Medicine
DX: S39.92XA Unspecified injury of lower back, initial encounter (principal); V43.02XA Car driver injured in collision with other type car in nontraffic accident, initial encounter; Y93.9 Activity, unspecified; Y92.481 Parking lot as the place of occurrence of the external cause; Y99.9 Unspecified external cause status; M54.50 Low back pain, unspecified; I10 Essential (primary) hypertension; E11.9 Type 2 diabetes mellitus without complications
CPT/HCPCS: 72100; 96372; 99283; 99284; J1885

== ENCOUNTER 2025-03-14 18:15 | Emergency (ER) | payer MEDICARE, MEDICAID, SELFPAY ==
--- NOTE | ~2025-03-14 | XR_ITS ---
CLINICAL HISTORY: pain trauma 3 view right hand Comparison: None provided Findings: No fractures or dislocations. [id number] right hand osteoarthritis. No erosions. No radiopaque foreign body. IMPRESSION: 1. No acute fracture or subluxation. 2. Additional findings as above. This document has been electronically signed by: Roula Melvin MD on 03/15/2025 01:44:08
--- NOTE | ~2025-03-14 | XR_ITS ---
CLINICAL HISTORY: pain, compression fx? 3 views lumbar spine Comparison: Lumbar spine radiograph 11/01/2023 Findings: Lumbar spine levoscoliosis minimally increased in conspicuity when compared to prior exam. Lordosis is maintained. Stable grade 1 L2 on L3 retrolisthesis. [id number] vertebral body height loss at L3 level minimally increased in conspicuity compared to prior exam. Progression of extensive multilevel endplate, discogenic and facet arthropathy throughout majority of lumbar spine most conspicuous at L2-L3. No acute findings within visualized soft tissues. Impression: 1. Progression of moderately extensive multilevel lumbar spine arthropathy when compared to prior exam. 2. Vertebral body height loss of L3 perhaps more conspicuous when compared to prior study. Of note, somewhat limited evaluation of vertebral bodies on lateral projection due to artifact from superimposed scoliosis. If there is high clinical degree of suspicion for fracture then evaluation with CT or MRI should be considered. 3. Additional findings as above. This document has been electronically signed by: Roula Melvin MD on 03/15/2025 01:43:47
--- NOTE | ~2025-03-14 | XR_ITS ---
CLINICAL HISTORY: pain trauma 3 view left hand Comparison: None provided Findings: No acute or displaced fracture. No subluxation. Normal osseous mineralization. Moderate left and osteoarthritis. No acute soft tissue abnormality. Impression: 1. No acute fracture or subluxation. 2. Additional chronic/nonacute findings as above. This document has been electronically signed by: Roula Melvin MD on 03/15/2025 01:42:46
--- NOTE | 2025-03-14 18:30 | ED.GENADULT ---
HPI - General Adult General Chief complaint: Back Pain/Injury Stated complaint: pain all over, sciatica Time Seen by Provider: 03/15/25 00:00 Source: patient Limitations: no limitations History of Present Illness ED Provider: Evelyne Bryson PA-C HPI narrative: 69-year-old female with a history of chronic pain on chronic opiate therapy, with known osteoarthritis, presents with diffuse back pain. Patient states [place], and that she ?walk too much?. Pain is focal to her back, there was no radiation down either extremity, no urinary retention, bowel incontinence, weakness of lower extremity or paresthesia. Patient admits that she ran out of her oxycodone at home, that she has been ?taking too much at a time?. History somewhat limited as the patient is becoming hostile and belligerent in triage. The patient is demanding x-rays of her hands, she states ?I want to know what is going on?. She states she has also been having bilateral hand pain. Related Data Previous Rx's ?Medication ?Instructions ?Recorded cyclobenzaprine 5 mg tablet 5 mg PO TID PRN low back pain 7 12/06/22 days #21 tabs naproxen 500 mg tablet 500 mg PO BID 7 days #14 tabs 12/06/22 cyclobenzaprine 10 mg tablet 10 mg PO Q8H #20 tabs 02/01/23 oxycodone-acetaminophen 5 mg-325 1 tab PO Q6H PRN pain #20 tabs 02/01/23 mg tablet (Percocet) cyclobenzaprine 5 mg tablet 5 mg PO TID PRN muscle spasm 7 06/23/23 days #21 tabs ketorolac 10 mg tablet 10 mg PO Q8H PRN pain #20 tabs 09/08/23 ketorolac 10 mg tablet 10 mg PO Q8H PRN pain #15 tabs 11/01/23 Allergies Allergy/AdvReac Type Severity Reaction Status Date / Time bupropion (From WELLBUTRIN) Allergy Unknown UNKNOWN Verified 03/14/25 18:33 ibuprofen (From MOTRIN) Allergy Unknown UNKNOWN Verified 03/14/25 18:33 Wellbutrin Allergy Unknown anaphylaxis Uncoded 09/29/22 11:22 Review of Systems Review of Systems: Yes all other systems are reviewed and are negative Constitutional: Constitutional: Denies fatigue and Denies fever(s) Musculoskeletal: Musculoskeletal: Reports back pain, Reports arthralgias, Reports joint swelling, Denies muscle weakness, Denies numbness and Denies radiating pain into limb Neurologic: Denies numbness Endocrine: Endocrine: Denies fatigue [facility] Past Medical History Attestation statement: The following information was validated with the patient. Medical History Diabetes HTN (hypertension) Social History Social History Advance Directives: No Advance Directives Information Provided: Yes Do you have a plan to hurt others: No Plan Physical Exam ED Vital Signs: Vital Signs - 24 hr 03/14/25 18:31 Temperature 97.5 F Pulse Rate 76 Respiratory Rate 16 Blood Pressure 171/79 H Pulse Oximetry 98 Oxygen Delivery Method Room Air BMI result Body Mass Index 34.5 Const Other: Alert Orientation/consciousness: patient oriented x3 Resp Effort & Inspection: normal respiratory effort Cardio Other: Normal peripheral perfusion Skin Other: Warm dry no rash Neuro General: patient oriented x3, gait normal, no focal motor deficits and CN's II-XI intact bilaterally Extrem Other: Strength 5/5 bilateral lower extremities, no deformity noted over the hands Psych Other: Hostile, belligerent Course Course Course Narrative: Rapid medical examination performed in triage by Cinthya Vasquez PA-C. Patient is a 69 year old assigned female at presenting to the emergency department with low back pain. Patient states she is having low back pain and is normally on oxycodone 5mg TID but she has now run out. Detailed physical exam and review of systems are deferred to the nurse clinician. Patient placed back in the waiting room pending room availability. Patient's [employer] shows (56) 5mg oxycodone prescribed on 02/26/2025 and filled 03/01/2025. Patient confirmed that she is out of her oxycodone stating she took more than prescribed on a few occasions . I explained to the patient that the prescriber wrote the prescription for 20 days and she has used all of it in 13 - therefore causing a delay with refill. Reevaluation(s) Reevaluation #1: The patient left without completing treatment, she became quite aggressive, demanding to leave, x-rays obtained but not completed, Reevaluation #2: patient is aware of xrays findings and instructed to follow up with her PCP. Sara Sarah, DO 03/16/25 1159 Medications Administered Discontinued Medications Generic Name Dose Route Start Last Admin Trade Name Erasmo PRN Reason Stop Dose Admin Cyclobenzaprine HCl 10 mg 03/15/25 00:13 03/15/25 00:38 Cyclobenzaprine Hcl 10 Mg Tablet PO 03/15/25 00:14 10 mg ONCE ONE Administration Ketorolac Tromethamine 15 mg 03/15/25 00:13 03/15/25 00:40 Ketorolac Tromethamine 15 Mg/Ml Vial IM 03/15/25 00:14 15 mg ONCE ONE Administration Prednisone 10 mg 03/15/25 00:13 03/15/25 00:38 Prednisone 10 Mg Tablet PO 03/15/25 00:14 10 mg ONCE ONE Administration Medical Decision Making Medical Decision Making MDM Narrative: 69-year-old female with a history of chronic pain on chronic opiate therapy, with known osteoarthritis, presents with diffuse back pain. Patient states she was [place], and that she ?walk too much?. Pain is focal to her back, there was no radiation down either extremity, no urinary retention, bowel incontinence, weakness of lower extremity or paresthesia. Patient admits that she ran out of her oxycodone at home, that she has been ?taking too much at a time?. History somewhat limited as the patient is becoming hostile and belligerent in triage. The patient is demanding x-rays of her hands, she states ?I want to know what is going on?. She states she has also been having bilateral hand pain. Problem: Chronic pain History: Per patient I have considered the following differential diagnoses: Acute on chronic pain, lumbar strain, lumbar radiculopathy, cauda equina, worsening arthritis, medication seeking behavior Plan: Patient here with the acute exacerbation of her pain. She readily admits that she is not taking her medication as directed and prescribed. I will not refill any additional oxycodone. I will be giving her a steroid taper and ketorolac. Ordering x-rays of bilateral hands in the lumbar spine, perhaps she has a compression fracture given known underlying arthritis, at her age she may have osteopenia/osteoporosis. [employer] shows (56) 5mg oxycodone prescribed on 02/26/2025 and filled 03/01/2025. Patient confirmed that she is out of her oxycodone stating she took more than prescribed on a few occasions . I explained to the patient that the prescriber wrote the prescription for 20 days and she has used all of it in 13 - therefore causing a delay with refill. Differential Diagnosis Differential Diagnoses: The differential diagnosis associated with the presentation includes See medical decision-making Admission/Observation Consideration of admission/observation: Escalation of care including admission/observation considered Not applicable Discharge Plan Discharge Clinical Impression: Back pain Patient Disposition: Left W/O Completing Treatment Prescriptions: No Action cyclobenzaprine 5 mg tablet 5 mg PO TID PRN (Reason: low back pain) 7 Days Qty: 21 0RF naproxen 500 mg tablet 500 mg PO BID 7 Days Qty: 14 0RF cyclobenzaprine 10 mg tablet 10 mg PO Q8H Qty: 20 0RF oxycodone-acetaminophen [Percocet] 5-325 mg tablet 1 tab PO Q6H PRN (Reason: pain) Qty: 20 0RF Rx Instructions: Partial Fill upon patient request. ketorolac 10 mg tablet 10 mg PO Q8H PRN (Reason: pain) Qty: 20 0RF Rx Instructions: maximum total duration of 5 days from all oral, intranasal, or parenteral formulations ketorolac 10 mg tablet 10 mg PO Q8H PRN (Reason: pain) Qty: 15 0RF Rx Instructions: maximum total duration of 5 days from all oral, intranasal, or parenteral formulations cyclobenzaprine 5 mg tablet 5 mg PO TID PRN (Reason: muscle spasm) 7 Days Qty: 21 0RF Discharge Date/Time: 03/15/25 01:47
[2025-03-14 18:31] VITALS: BP 171/79; PULSE 76; RESP 16; TEMP 36.4; O2SAT 98; BMI 34.5
--- NOTE | 2025-03-15 01:41 | PC.NURSE ---
pt verbalized frustration with wait time on xr results/discharge papers. Nicolette KASPER aware. pt refused to wait longer, left ed at this time.
== END 2025-03-15 01:47 | disposition left against medical advice (07) ==
PROVIDERS: Emergency Provider Emergency Medicine; PCP Family Medicine
DX: M54.50 Low back pain, unspecified (principal); G89.29 Other chronic pain; M79.641 Pain in right hand; M79.642 Pain in left hand
CPT/HCPCS: 72100; 73130; 96372; 99282; 99284; J1885

== ENCOUNTER → 2025-03-15 00:59 | Outpatient (BNV) | payer MEDICARE, MEDICAID, SELFPAY | PROVIDERS: Emergency Provider Emergency Medicine; PCP Family Medicine; Visit Provider Radiology Diagnostic Radiology | DX: M47.816 Spondylosis without myelopathy or radiculopathy, lumbar region (principal); M79.642 Pain in left hand; M79.641 Pain in right hand | CPT/HCPCS: 72100; 73130 ==